=== PATIENT | male | born 1935 | race Caucasian/White ===

== ENCOUNTER 2023-09-13 09:30 | Outpatient (RCR) | payer MEDICARE, SELFPAY | END 2023-10-25 14:08 | disposition home or self-care (01) | PROVIDERS: PCP Family Medicine; Visit Provider Family Medicine | DX: S92.002D Unspecified fracture of left calcaneus, subsequent encounter for fracture with routine healing (principal); M79.672 Pain in left foot; R26.9 Unspecified abnormalities of gait and mobility; Z51.89 Encounter for other specified aftercare | CPT/HCPCS: 97110; 97112; 97116; 97161 ==

== ENCOUNTER 2024-11-20 16:59 | Emergency (ER) | payer MEDICARE, SELFPAY ==
[2024-11-20 17:07] VITALS: BP 163/84; PULSE 57; RESP 18; TEMP 36.7; O2SAT 98; BMI 22.9
--- NOTE | 2024-11-20 18:07 | ED.MALEGU ---
HPI - Male Genitourinary General Chief complaint: Urogenital Problems, Male Stated complaint: urine retention Time Seen by Provider: 11/20/24 18:01 History of Present Illness HPI Narrative: This 89-year-old male comes from clinic because of urinary retention. He reports an allergy to Betadine and latex and so was sent here to have a catheter placed that would not trigger his allergies. Bladder scan on arrival here showed 600 mL of urine. Patient states that there was 900 mL in at the clinic. He has been able to void small amounts rather frequently. He has been having troubles with this urinary retention and has made an appointment with a urologist which is forthcoming for. He does not report any fevers. He did have a urinalysis done at the clinic which was negative for infection. Related Data Home Medications ?Medication ?Instructions ?Recorded ?Confirmed levothyroxine 88 mcg tablet 88 mcg PO QAM 11/20/24 11/20/24 Allergies Allergy/AdvReac Type Severity Reaction Status Date / Time adhesive Allergy Unknown Verified 11/20/24 17:22 ketoconazole Allergy Unknown Verified 11/20/24 17:22 latex Allergy Unknown Verified 11/20/24 17:22 Penicillins Allergy Unknown Verified 11/20/24 17:22 povidone-iodine (From Allergy Unknown Verified 11/20/24 17:22 Betadine) Sulfa (Sulfonamide Allergy Unknown Verified 11/20/24 17:22 Antibiotics) Review of Systems Status of ROS: Reports: 10 or more systems reviewed and unremarkable except as noted in History and below Narrative: Constitutional: No fevers, no weight gain or loss. Eyes: No discharge. No vision changes. HENT: No congestion, no sore throat, no ear pain. Cardiovascular: No chest pain, no palpitations. Respiratory: No shortness of breath, no wheezes, no cough. Gastrointestinal: No abdominal pain, no vomiting, no diarrhea. Genitourinary: Urinary retention. Musculoskeletal: Normal range of motion. Skin: No rashes, no pruritis. Neurological: No dizziness, weakness, sensory change, speech change. Endo/Heme/Allergies: No bruising or bleeding. No polydipsia. Pysch: no suicidality, no anxiety, no insomnia. All other systems reviewed and are negative. Exam Narrative: Exam Narrative: Constitutional: Well-developed, well-nourished, no acute distress. HEENT: Normocephalic, atraumatic. Neck: Normal range of motion. Nontender. Supple. Heart: Regular. No murmurs. Normal rate. Intact distal pulses. Lungs: Clear to auscultation. No chest discomfort. No wheezes, rhonchi, or rales. Abdomen: Normal bowel sounds. No rebound tenderness. Distended lower abdomen. Genitalia: Deferred. Back: No midline tenderness. Normal range of motion. Extremities: Normal range of motion. No injury. Skin: Intact. No rash. Warm. No erythema or pallor. Neurologic: No altered sensation. No weakness. Alert and oriented. Psychiatric: No suicidality. No anxiety or depression. No insomnia. Nursing notes and vitals signs are reviewed. Const: Vital Signs, click to edit/add: Vital Signs - 24 hr 11/20/24 17:07 Temperature 98.1 F Pulse Rate [Right Pulse Oximeter] 57 L Respiratory Rate 18 Blood Pressure [Ri ght Upper Arm] 163/84 H Pulse Oximetry 98 Oxygen Delivery Me thod Room Air Course Vital Signs Vital signs: Initial Vital Signs Temperature 98.1 F 11/20/24 17:07 Temperature Source Temporal Artery Scan 11/20/24 17:07 Pulse Rate 57 L 11/20/24 17:07 Respiratory Rate 18 11/20/24 17:07 Blood Pressure 163/84 H 11/20/24 17:07 Blood Pressure Mean 110 H 11/20/24 17:07 Blood Pressure Position Sitting 11/20/24 17:07 Pulse Oximetry 98 11/20/24 17:07 Oxygen Delivery Method Room Air 11/20/24 17:07 Vital Signs Temperature 98.1 F 11/20/24 17:07 Pulse Rate 57 L 11/20/24 17:07 Respiratory Rate 18 11/20/24 17:07 Blood Pressure 163/84 H 11/20/24 17:07 Pulse Oximetry 98 11/20/24 17:07 Oxygen Delivery Method Room Air 11/20/24 17:07 Temperature 98.1 F 11/20/24 17:07 Pulse Rate 57 L 11/20/24 17:07 Respiratory Rate 18 11/20/24 17:07 Blood Pressure 163/84 H 11/20/24 17:07 Pulse Oximetry 98 11/20/24 17:07 Oxygen Delivery Method Room Air 11/20/24 17:07 Medications Administered Medications: Discontinued Medications Generic Name Dose Route Start Last Admin Trade Name Gareth PRN Reason Stop Dose Admin Lidocaine HCl 6 ml 11/20/24 18:06 11/20/24 18:36 Lidocaine Hcl 2 % Jelly (Top) Sterile TOPICAL 11/20/24 18:07 6 ml ONCE ONE Administration MDM - Male Genitourinary MDM Narrative Medical decision making narrative: This 89-year-old male comes in with urinary retention. A Echevarria catheter was placed and yielded 1100 mL of urine. There is some reddish tinge to the urine likely from the insertion of the catheter. His urinalysis at clinic was negative for infection and hematuria. I instructed him to follow up with Urology which she already has made a connection with. He could return in 3 or 4 days to have the catheter removed if the urology clinic advice is to do such. He was fitted with a leg bag and an overnight bag for going home. Discharge Plan Discharge Clinical Impression: Acute urinary retention Patient Disposition: Home, Self-Care Condition: Improved Additional Instructions: Keep Echevarria catheter in place for at least 3 or 4 days. Follow-up with urology clinic for ongoing management. Return if worsening. Prescriptions: No Action levothyroxine 88 mcg tablet 88 mcg PO QAM Follow Up/Referrals: Peggy Gregg MD [Primary Care Provider] - Stand Alone Forms: HearMe[employer] Info Instructions
[2024-11-20] MEDS: lidocaine HCL 2 % JELLY (TOP) STERILE 6 ML TOPICAL (18:36)
--- OUTSIDE RECORDS SUMMARY | 2024-11-20 19:31 | XMS_ITS | Clinical Summary ---
Author Organization [facility] [facility] Address [address] [place] [id number] Care Team Providers Care Co Founder And Director Name Role Phone Leslie Diaz Joya Unavailable [phone] Peggy Gregg MD Primary Care Provider Allergies Active Allergy Reactions Criticality Noted Date Comments Povidone-Iodine Hives 05/05/2005 Other reaction(s): Swelling huge welt from prep of skin on back Homeopathic Products Ketoconazole Rash 04/13/2011 inflammation Latex Rash 12/03/2006 Patient states he has a severe latex allergy (not anaphylaxis). However, patient had post-op complications at [place] due to severe skin reaction after latex containing bandages were applied. Tree Nut Itching 07/06/2008 Itching inside of mouth Unlisted Allergen (Include Detail In Comments) Rash 07/06/2008 [employer] Medical Coverlet Adhesive dressing Penicillins Itching 12/03/2006 prickly skin Sulfa (Sulfonamide Antibiotics) *Unknown 12/03/2006 Tetanus And Diphtheria Toxoids, Adsorbed, Adult 03/11/2007 had half dollar size red rxn to last tet shot and wonders if it was related to latex allergy Medications multivitamins-mi nerals-lutein (MULTIVITAMIN 50 PLUS) tab tablet Take 1 tablet by mouth once daily. Active polyethylene glycoL (MIRALAX) 17 gram/scoop powder Mix 1 scoop (17 g) in liquid then take by mouth. 0 3 Active levothyroxine (SYNTHROID) 88 mcg tabletIndication s:Hypothyroidism , unspecified type Take 1 Tablet (88 mcg) by mouth before breakfast. 90 Tablet 3 4 Active loratadine (CLARITIN) 10 mg tablet Take 10 mg by mouth once daily. Active triamcinolone, 55 mcg each actuation, nasal (NASACORT AQ) 55 mcg nasal spray Inhale 2 Sprays in both nostrils once daily. Active triamcinolone 0.1 % creamIndications :Dermatitis Apply topically to affected area(s) two times daily. 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 Other and unspecified hyperlipidemia 03/07/2007 Resolved Problems Problem Noted Date Diagnosed Date Resolved Date Chronic kidney disease, stage III (moderate) 6 06/25/2024 Major depressive disorder, r ecurrent episode, mild 08/30/2007 11/01/2020 Encounters Date Type Department Care Team Description 11/20/2024 2:25 PM CDT Office Visit [facility] [address] [place] [address] Peggy Gregg MD Derm Problem (Left ankle; rash as well as right foot and left foot.); Urinary Problem (Frequency in urination; every half hour to an hour to go); Weight (Has gained weight and needs to loose about 20 lbs.) 11/20/2024 Travel 08/25/2024 Telephone [facility] [address] [place] [address] Leonie Redding AuD Hearing Aid from Last 3 Months Immunizations Immunization Administration Dates Next Due COVID-19 VACCINE SPIKEVAX (M ODERNA 50MCG/0.5ML) 12YO+ PFS 06/03/2024,11/22/2023,06/12/2023 COVID-19 vaccine (Finalta NTech 30mcg/0.3mL) 12YO+ BIVALENT PF, MDV 05/04/2022 COVID-19 vaccine (Finalta NTech 30mcg/0.3mL) 12YO+ SYEDA-SUCROSE PF, MDV 11/23/2021 COVID-19 vaccine (Finalta NTech 30mcg/0.3mL) PF, MDV 05/14/2021,10/12/2020,09/21/2020 Influenza A (H1N1), Inactivated 08/24/2009 Influenza Virus, Unspecified 04/25/2019,05/27/20 14,06/05/2011 Influenza, High-dose Inactivated 05/27/2014 Influenza, High-dose Quadriv alent Inactivated 06/02/2022,05/14/2021,06/04/2020 Influenza, IIV3 (Age >=3 years) 06/05/20 12,06/05/2011,05/05/2010,2008,10/11/2005,05/23/2004,06/20/2003 Influenza, IIV4 06/26/2018,06/01/2017 Influenza, Inactivated AIIV4 (Age 65+ Years) Preserv Free 06/12/2023 Influenza, Inactivated IIV3 (Age 65+ Years) Preserv Free 06/03/2024 Pneumococcal Poly,23-Valent (Pneumovax) 10/11/2005 Pneumococcal conj 13-Valent (Prevnar 13) 01/03/2018 Td (Age >=7 Years) 09/21/1995 Td, Preservative Free (age > = 7 Years) 03/07/2007 Tdap 10/07/2012 Tdap, Unspecified 09/21/1995 Zoster (Shingrix-RZV, recombinant) 03/20/2018, Zoster (Zostavax-ZVL, live) 03/20/2013 Family History Medical History Relation Name Comments Other Brother 2 diabetes, heart , bipolar Other Father age 89, ar teriosclerosi Arthritis Mother rheumatoid Other Mother age 96, [place] , breast ca, arthritis Anesthesia Malignant Hyperthermia No Family History Blood Disease No Family History Relation Name Status Comments Brother 1 Brother 2 Father Mother Social History Tobacco Use Types Packs/Day Years Used Date Smoking Tobacco: Former Cigarettes 0 01/04/1960 - 08/13/1962 Pipe Cigars Smokeless Tobacco: Never Tobacco Cessation:Counseling Given: Yes Comments:patient states not a regular smoker Alcohol Use Standard Drinks/Week Comments Yes 0 (1 standard drink = 0.6 oz pur e alcohol) occasional PHQ-2 Answer Date Recorded PHQ-2 TOTAL SCORE 0 06/25/2024 Social Connections Answer Date Recorded Do you often feel lonely or isolated from those around you? 0 06/25/2024 Financial Resource Strain Answer Date R ecorded Difficulty of Paying Living Expenses 3 06/25/2024 Difficulty of Paying Living Expenses Not on file 06/25/2024 Food Insecurity Answer Date Recorded Do you worry your food will run out before you are able to buy more? 1 06/25/2024 Transportation Needs Answer Date Record ed Does lack of transportation keep you from medica l appointments? 1 06/25/2024 Does lack of transportation keep you from work, meetings or getting things that you need? 1 06/25/2024 Housing Stability Answer Date Recorded What is your housing situation today? 1 06/25/2024 Utilities Answer Date Recorded Do you have trouble paying f or utilities (for example, heat, electricity, water, phone)? 1 06/25/2024 Sex and Gender Information Value Date Recorded Sex Assigned at Not on file Legal Sex Male 6:07 AM CLINICAL TRIAL DATA MANAGER Gender Identity Not on file Sexual Orientation Not on file Occupation Industry Job Start Date Job End Date retired Not on file Not on file Not on file Obstetrics History Last Filed Vital Signs Vital Sign Reading Time Taken Comments Blood Pressure 135/81 11/20/2024 2:33 PM CDT Pulse 70 11/20/2024 2:33 PM CDT Temperature 36.6 C (97.9 F) 05/16/2023 11:05 AM CDT Respiratory Rate 12 02/19/2020 8:38 AM CDT Oxygen Saturation 97% 11/20/2024 2:33 PM CDT Inhaled Oxygen Concentration - - Weight 75.2 kg (165 lb 12.8 oz) 024 10:28 AM CLINICAL TRIAL DATA MANAGER Height 177.8 cm (5' 10) 07/16/2024 10: 28 AM CLINICAL TRIAL DATA MANAGER Body Mass Index 23.79 07/16/2024 10:28 AM CLINICAL TRIAL DATA MANAGER Plan of Treatment Health Maintenance Due Date Last Done Comments RSV vaccine for adults or (1 - 1-dose 75+ series) 2010 Tetanus booster 10/07/2022 10/07/2012, 02/11, 09/21/1995, Additional history exists COVID-19 vaccine series ( season) 2024 06/03/2024, 11/22/2023, 06/12/2023, Additional history exists Depression screening for age 12+ 06/25/2025 06/25/2024, 05/23/2023, 02/02/2022, Additional history exists Medicare Wellness for age 65+ 06/26/2025, 02/02/2022, 11/01/2020, Additional history exists BMI (ht and wt on same day) for age 18+ 07/16/2025 07/16/2024, 06/25/2024, 02/02/2022, Additional history exists Tdap Completed 10/07/2012, 09/21/1995 Pneumococcal series for age 50+ Completed 8, 10/11/2005 Zoster (shingles) series for age 50+ Completed 03/20/2018, 12/31/2017, 03/20/2013 Influenza Vaccine Completed 06/03/2024, , 04/25/2019, Additional history exists Medical Devices Implanted Type Area Maintainability Engineer Device Identifier Shelf Expiration Date Model / Serial / Lot Stent Uret [id number] Contour - [id number] Implanted:Qty: 1 on 06/29/2016 by Colin Zhao MD at [facility] Right: [facility]reter [facility] [id number]# / / [id number] Stent Uret [id number] Contour - [id number] Implanted:Qty: 1 on 09/12/2017 by Tripp Howard MD at [facility] Right: [facility]reter [facility] 06/26/2020 [id number]# / / [id number] Procedures Procedure Name Priority Date/Time Associated Diagnosis Comments URINALYSIS MACROSCOPIC - [facility] ONLY POC DIP (QUEST) Routine 11/20/2024 3:37 PM CDT Urine frequency from Last 3 Months Results * (ABNORMAL) POCT Urinalysis Dipstick Only [[id number]] (11/20/2024 3:37 PM CDT) PH 6.0 5.0 - 8.0 [facility] SPECIFIC GRAVITY 1.015 1.001 - 1.035 [facility] GLUCOSE NEGATIVE NEGATIVE [facility] BILIRUBIN NEGATIVE NEGATIVE [facility] KETONES NEGATIVE NEGATIVE [facility] OCCULT BLOOD TRACE(A) NEGATIVE [facility] PROTEIN NEGATIVE NEGATIVE [facility] NITRITE NEGATIVE NEGATIVE [facility] LEUKOCYTE ESTERASE NEGATIVE NEGATIVE [facility] Urine URINE SPECIMEN / Unknown 11/20/2024 3:37 PM CDT 11/20/2024 3:38 PM CDT Peggy Gregg MD URINE Final R esult [facility] [address] [place] [address], [facility] [address] [place] [address] from Last 3 Months Insurance MEDICARE PB ONLY MEDICARE PART B HB ONLY MEDICARE PART A HB ONLY Advance Directives Documents on File Type Date Recorded Patient Rubber Down Expl anation Healthcare Directive 09/23/2013 8:21 AM AM Sahra BURNS, 09/04/2013 * Full Code (Latest Code Status on File) Date Activated Date Inactivated Comments 09/13/2017 11:03 AM 09/13/2017 2:49 PM Question Answer Comments Code Status Discussion: Discussed * Full Code Date Activated Date Inactivated Comments 09/12/2017 7:37 AM 09/12/2017 12:16 PM * Full Code Date Activated Date Inactivated Comments 06/29/2016 3:08 PM 06/30/2016 2:32 AM Care Teams Co Founder And Director Relationship Specialty Start Date End Date Peggy Gregg MD [address] [place] [address] PCP - General Family Practice 11/01/16 Leslie Diaz AuD [address] [place] [address] Audiology 10/05/15
--- OUTSIDE RECORDS SUMMARY | 2024-11-20 19:31 | XMS_ITS | Clinical Summary ---
Author Organization [facility] Address [address] [address] Phone Care Team Providers Care Rehabilitation Consultant Name Role Phone Peggy Gregg MD Primary Care Provider Allergies Active Allergy Reactions Criticality Noted Date Comments Povidone Iodine Hives,Swelling High 05/05/2005 huge welt from prep of skin on back Environmental Rhinitis Low 05/05/2005 hayfever like systems Food Rhinitis Low 05/05/2005 throat sore from many fruits, and vegetables FRESH allergic also to most nuts Most okay if cooked Ketoconazole Other Low 01/16/2013 [facility] Record Scanned 08/24/14 Latex RASH Medium 12/19/2005 Latex, Also some metals, and adhesives, bandages Penicillin G Potassium RASH Medium 05/05/2005 Povidone Iodine Hives,Swelling High 05/05/2005 Other reaction(s): Swelling huge welt from prep of skin on back Sulfa Drugs Unknown Medium 05/05/2005 ? allergy would rather not use Medications Psyllium (METAMUCIL OR) Take by mouth. Active levothyroxine (Synthroid) 88 MCG tablet Take 88 mcg by mouth one time a day. 01/06/2022 Active Active Problems No known active problems Immunizations Name Administration Dates Next Due COVID-19 mRNA Vaccine (Pfize r-Purple 12+ Yrs) 10/12/2020,09/21/2020 Influenza 05/27/2014 Influenza H1N1 Unspecified 08/24/2009 Influenza High Dose Quadrivalent 06/04/2020 Influenza Trivalent Adjuvant ed Preservative Free (Fluad) 04/25/2019 Influenza Trivalent Preservative Free 06/05/2011 Influenza Trivalent Preserva tive Free (High Dose) 06/26/2018,06/01/2017,05/27/2014 Influenza Trivalent With Preservative 06/05/2012 ,05/23/2004,06/20/2003 Pneumococcal Conjugate, (Prevnar)13-valent 01/03 Pneumovax 23 10/11/2005 TD >7Yrs Preservative Free 03/07/2007 TD >7yrs With Preservative 09/21/1995 Tdap (7 years and older) 10/07/2012,09/21/1995 Zoster Shingrix 2 Dose (Shingles) 03/20/2018, Zoster Zostavax (Shingles) 03/20/2013 Surgical History Surgery Date Site/Laterality Comments LAP,INGUINAL HERNIA REPR,INITIAL 04/10/2013 Right OPEN RX METATARSAL FRACTURE 5th Metatarsal ORIF TONSILLECTOMY AND ADENOIDECTOMY CIRCUMCISION VASECTOMY TURP 2010 DESTRUCT PREMALG LESION 08/18/2014 COLONOSCOPY 12/10/2007 Medical History Medical History Date Comments Closed fracture of alveolar border of body of mandible (HCC) 03/23/2003 Right inguinal hernia 03/19/2013 Hypothyroidism 03/20/2013 Allergic rhinitis 03/20/2013 Psoriasis 03/20/2013 Prostate hyperplasia without urinary obstruction 03/20/2013 Impotence of organic origin 03/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 Hyperlipidemia 03/20/2013 Major depression, recurrent (HCC) 03/20/2013 Bony exostosis 12/31/2013 Great toe Toe deformity 12/31/2013 Transverse plane deformity, second digit, left foot Seborrheic dermatitis 08/18/2014 Actinic keratoses 08/18/2014 Hematuria 08/14/2014 Constipation 08/14/2014 Family History Medical History Relation Comments Bipolar Brother 1 Diabetes Brother 2 Cardiovascular Disease Brother 3 Relation Status Comments Brother 1 Brother 2 Brother 3 Father (Age 89) Arterioscleros is Mother (Age 96) [place], breast can cer, arthritis Social History Tobacco Use Types Packs/Day Years Used Date Smoking Tobacco: Never Smokeless Tobacco: Never Tobacco Cessation:Counseling Given: Not Answered Alcohol Use Standard Drinks/Week Comments Not Asked 0 (1 standard drink = 0.6 oz pur e alcohol) PHQ-2 Answer Date Recorded PHQ-2 Total 0 03/21/2023 Sex and Gender Information Value Date Recorded Sex Assigned at Not on file Legal Sex 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:59 PM SENIOR TAX ANALYST Gender Identity Not on file Sexual Orientation Not on file Obstetrics History Last Filed Vital Signs Vital Sign Reading Time Taken Comments Blood Pressure 132/70 05/09/2023 2:55 PM CDT Pulse 60 05/09/2023 2:55 PM CDT Temperature 36.9 C (98.4 F) 03/21/2023 1:06 PM CDT Respiratory Rate - - Oxygen Saturation 98% 05/09/2023 2:55 PM CDT Inhaled Oxygen Concentration - - Weight 73 kg (160 lb 15 oz) 03/28/2023 11:14 AM CDT Height - - Body Mass Index - - Plan of Treatment Health Maintenance Due Date Last Done Comments MEDICARE AWV 1935 RSV Vaccination (60+ yrs) (Abrysvo/Arexvy) (1 - 1-dose 75+ series) 2010 TETANUS (Standing Order) 10/07/2022 013, 03/07/2007, 09/21/1995, Additional history exists COVID-19 Vaccine ( season) 2024 10/12/2020, 09/21/2020 Influenza Vaccine Seasonal (Standing Order) (#1) 2024 06/04/2020, 04/25/2019, 06/26/2018, Additional history exists PERTUSSIS (Standing Order) Completed 10/07/2012, Pneumococcal Vaccine: 50+ yrs (Standing Order) Completed 01/03/2018, 10/11/2005 Shingrix (Zoster recombinant) vaccine (Standing Order) Completed 03/20/2018, 12/31/2017 HPV Vaccine (Standing Order) Aged Out No longer eligible based on patient's age to complete this topic Hepatitis B Vaccine (Standing Order) Aged Out No longer eligible based on patient's age to complete this topic Insurance MEDICARE PART A & B Advance Directives For more information, please contact: [phone] * No Code Status (Latest Code Status on File) Date Activated Date Inactivated Comments 01/02/2005 9:16 AM 01/02/2005 9:16 AM Care Teams Rehabilitation Consultant Relationship Specialty Start Date End Date Peggy Gregg MD PCP - General Family Medicine 01/11/17
== END 2024-11-20 19:33 | disposition home or self-care (01) ==
LOC: ED 19:29
PROVIDERS: Emergency Provider Emergency Medicine Emergency Medical Services; PCP Family Medicine
DX: R33.9 Retention of urine, unspecified (principal)
CPT/HCPCS: 51702; 99283; 99284

== ENCOUNTER 2024-11-28 20:41 | Emergency (ER) | payer MEDICARE, SELFPAY ==
--- OUTSIDE RECORDS SUMMARY | 2024-11-28 20:44 | XMS_ITS | Clinical Summary ---
Author Organization [facility] [employer] [facility] Address [address] [address] Phone Care Team Providers Care Senior Brand Manager Name Role Phone Peggy Gregg MD Primary Care Provider Allergies Active Allergy Reactions Criticality Noted Date Comments Povidone Iodine Hives,Swelling High 05/05/2005 huge welt from prep of skin on back Environmental Rhinitis Low 05/05/2005 hayfever like systems Food Rhinitis Low 05/05/2005 throat sore from many fruits, and vegetables FRESH allergic also to most nuts Most okay if cooked Ketoconazole Other Low 01/16/2013 [facility] Record Scanned 08/24/14 Latex RASH Medium [...] (Age 89) Arterioscleros is Mother (Age 96) [place], breast can cer, arthritis Social History Tobacco [...] on file Legal Sex 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
--- OUTSIDE RECORDS SUMMARY | 2024-11-28 20:44 | XMS_ITS | Clinical Summary ---
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 However, patient had post-op complications at [place] due to severe skin reaction after latex [...] Encounters Date Type Department Care Team Description 11/28/2024 2:40 PM CDT Nurse/Clinic Staff Only [facility] [address] [place] [address] Removal (Catheter removal ) 11/28/2024 Telephone [facility] [address] [facility] [place] [address] Peggy Gregg MD Appointment 11/28/2024 Travel 11/24/2024 Telephone [facility] [address] [facility] [place] [address] Peggy Gregg MD Results 11/21/2024 Telephone [facility] [address] [facility] [place] [address] Peggy Gregg MD Results 11/20/2024 2:25 PM CDT Office Visit [facility] [address] [place], [place] [id number] Peggy Gregg MD Derm Problem (Left ankle; rash as well as right foot and left foot.); Urinary Problem (Frequency in urination; every half hour to an hour to go); Weight (Has gained weight and needs to loose about 20 lbs.) 11/20/2024 Travel from Last 3 Months Immunizations Immunization Administration Dates Next Due COVID-19 VACCINE SPIKEVAX (M ODERNA 50MCG/0.5ML) 12YO+ PFS 06/03/2024,11/22/2023,06/12/2023 COVID-19 vaccine (Genera EnergyBio NTech 30mcg/0.3mL) 12YO+ BIVALENT PF, MDV 05/04/2022 COVID-19 vaccine (Genera EnergyBio NTech 30mcg/0.3mL) 12YO+ SYEDA-SUCROSE PF, MDV 11/23/2021 COVID-19 vaccine (SQLstream NTech 30mcg/0.3mL) PF, MDV 05/14/2021,10/12/2020,09/21/2020 Influenza A [...] Arthritis Mother rheumatoid Other Mother age 96, [place] , breast ca, arthritis Anesthesia Malignant Hyperthermia [...] on file Legal 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 Gender Identity Not on file Sexual [...] (165 lb 12.8 oz) 024 10:28 AM LPN CARE MANAGER Height 177.8 cm (5' 10) 07/16/2024 10: 28 AM LPN CARE MANAGER Body Mass Index 23.79 07/16/2024 10:28 AM LPN CARE MANAGER Plan of Treatment Upcoming Encounters Date Type Department Care Team (Late st Contact Info) Description 12/08/2024 8:15 AM CDT Orders Only [facility] [address] [place] [address] Lab, [facility] Maintenance Due Date Last Done Comments [...] history exists Medical Devices Implanted Type Area Optical Manufacturing Technician Device Identifier Shelf Expiration Date Model / Serial / Lot Stent Uret [id number] Contour - [id number] Implanted:Qty: 1 on 06/29/2016 by Colin Zhoa MD at [facility] Right: Ureter [facility] [place] [facility] [id number]# / / [id number] Stent Uret [id number] Contour - [id number] Implanted:Qty: 1 on 09/12/2017 by Tripp Howard MD at [facility] Right: Ureter [facility] [place] [facility] 06/26/2020 [id number]# / / [id number] Procedures Procedure Name Priority Date/Time Associated Diagnosis Comments CREATININE Routine 11/20/2024 4:40 PM CDT BPH with urinary obstruction URINALYSIS MICROSCOPIC Routine 11/20/2024 3:37 PM CDT Urine frequency URINE CULTURE Routine 11/20/2024 3:37 PM CDT Urine frequency URINALYSIS [facility] ONLY POC DIP ([facility]) Routine 11/20/2024 3:37 PM CDT Urine frequency from Last 3 Months Results * (ABNORMAL) CREATININE (11/20/2024 4:40 PM CDT) CREATININE 1.29(H) 0.70 - 1.22 mg/dL [facility] EGFR 53(L) > OR = 60 mL/min/1.73 m2 [facility] Garcia Blood BLOOD SPECIMEN / Unknown 11/20/2024 4:40 PM CDT 11/20/2024 4:40 PM CDT us Peggy Gregg MD CHEMISTRY Final R esult [facility] [address] [place] [address], [facility] [address] [place] [address] * (ABNORMAL) POCT Urinalysis Dipstick Only [[id number]] (11/20/2024 3:37 PM CDT) Pathologist [facility] PH 6.0 5.0 - 8.0 [facility] SPECIFIC GRAVITY 1.015 1.001 - 1.035 [facility] GLUCOSE NEGATIVE NEGATIVE [facility] BILIRUBIN NEGATIVE NEGATIVE [facility] KETONES NEGATIVE NEGATIVE [facility] OCCULT BLOOD TRACE(A) NEGATIVE [facility] PROTEIN NEGATIVE NEGATIVE [facility] NITRITE NEGATIVE NEGATIVE [facility] LEUKOCYTE ESTERASE NEGATIVE NEGATIVE [facility] Urine URINE SPECIMEN / Unknown 11/20/2024 3:37 PM CDT 11/20/2024 3:38 PM CDT Peggy Gregg MD URINE Final R esult [facility] [address] [place] [address], [facility] [address] [place] [address] * URINALYSIS MICROSCOPIC [30074.1] - routine (11/20/2024 3:37 PM CDT) Pathologist [facility] RBC 0-2 0-2, None Seen /HPF 11/20/2024 11:10 PM CDT [facility] WBC 0-2 0-2, 3-5, None Seen /HPF 11/20/2024 11:10 PM CDT [facility] BACTERIA None Seen None Seen, Rare, Few Bacteria/ HPF 11/20/2024 11:10 PM CDT [facility] EPITHELIAL CELLS None Seen None Seen, Few Epi/HPF 11/20/2024 11:10 PM CDT [facility] HYALINE CASTS 0-2 0-2, 3-5 /LPF 11/20/2024 11:10 PM CDT [facility] Urine URINE SPECIMEN / Unknown Non-Blood / Unknown 11/20/2024 3:37 PM CDT 11/20/2024 3:37 PM CDT Peggy Gregg MD URINE Final R esult Performing Organization Address City/[facility]/ZIP Co de Phone Number [facility] [address] [address], [place] * URINE CULTURE [40517.2] (11/20/2024 3:37 PM CDT) CULTURE <10,000 CFU/mL multiple organisms 11/22/2024 3:15 PM CDT [facility] Urine URINE SPECIMEN / Unknown Non-Blood / Unknown 11/20/2024 3:37 PM CDT 11/20/2024 3:37 PM CDT Peggy Gregg MD MICROBIOLOGY Final R esult Performing Organization Address City/[facility] Co de Phone Number [facility] [address] [address], from Last 3 Months Insurance MEDICARE PB ONLY MEDICARE PART B HB ONLY MEDICARE PART A HB ONLY Advance Directives Documents on File Type Date Recorded Patient Cathead Worker Expl anation Healthcare Directive 09/23/2013 8:21 AM AM Sahra BURNS 09/04/2013 * Full Code (Latest Code Status on File) Date Activated Date Inactivated Comments 09/13/2017 11:03 AM 09/13/2017 2:49 PM Question Answer Comments Code Status Discussion: Discussed * Full Code Date Activated Date Inactivated Comments 09/12/2017 7:37 AM 09/12/2017 12:16 PM * Full Code Date Activated Date Inactivated Comments 06/29/2016 3:08 PM 06/30/2016 2:32 AM Care Teams Blemish Remover Relationship Specialty Start Date End Date Peggy Gregg MD [address] [place] [address] PCP - General Family Practice 11/01/16 Leslie Diaz AuD [address] [place] [address] [address] Audiology 10/05/15
[2024-11-28 21:01] VITALS: BP 166/96; PULSE 66; RESP 18; TEMP 36.7; O2SAT 97; BMI 22.6
[2024-11-28 21:40] LABS: Appearance Urine Clear (Clear); Bilirubin Urine Negative (Negative); Blood Urine 3+ (Negative); Color Urine Yellow (Yellow); Glucose Urine Negative (Negative); Ketones Urine Negative (Negative); Leukocyte Esterase Urine Negative (Negative); Nitrite Urine Negative (Negative); Protein Urine 3+ (Negative); Specific Gravity Urine 1.025 (1.000-1.030); Urobilinogen Urine 0.2 (0.2-1.0); pH Urine 6.5 (5.0-8.5)
[2024-11-28 21:50] LABS: WBC Urine 0-2 (0-5)
[2024-11-28] MEDS: lidocaine HCL 2 % JELLY (TOP) STERILE 6 ML UR (21:56)
--- NOTE | 2024-11-28 22:37 | ED_ITS ---
HPI - General Adult General Date Seen: 11/28/24 Chief complaint: Urogenital Problems, Male Stated complaint: urinary problems Time Seen by Provider: 11/28/24 21:05 History of Present Illness HPI narrative: Very pleasant 89-year-old gentleman presenting to the ER today with his with concern for inability to urinate. 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 Kuhn). He was seen here in the ER about 10 days ago on the with urinary retention and had placement of a Echevarria catheter. He had that catheter in place for over a week and then had follow-up in his primary care clinic today. He had the catheter removed around noon today at the [facility] clinic but has not been able to urinate since then. He he is noting increasing suprapubic pressure but not really abdominal pain. No flank pain. No fever. No nausea or vomiting. Since he is unable to void my than a drop, he is concerned that he has recurrent retention so came back to the ER. He would like to have another catheter put in. His notes that his clinic referred him for Urology and apparently the 1st available appointment is in January. Related Data Home Medications ?Medication ?Instructions ?Recorded ?Confirmed levothyroxine 88 mcg tablet 88 mcg PO QAM 11/20/24 11/28/24 Allergies Allergy/AdvReac Type Severity Reaction Status Date / Time adhesive Allergy Unknown Verified 11/28/24 21:03 ketoconazole Allergy Unknown Verified 11/28/24 21:03 latex Allergy Unknown Verified 11/28/24 21:03 Penicillins Allergy Unknown Verified 11/28/24 21:03 povidone-iodine (From Allergy Unknown Verified 11/28/24 21:03 Betadine) Sulfa (Sulfonamide Allergy Unknown Verified 11/28/24 21:03 Antibiotics) Exam Narrative: Exam Narrative: Constitutional: Appears well-developed and well-nourished. Alert. Conversant. Non toxic. HENT: Head: Atraumatic. Nose: Nose normal. Mouth/Throat: Oral mucosa is clear and moist. no trismus. Eyes: Conjunctivae normal. EOM normal. Pupils equal, round, and reactive to light. No scleral icterus. Neck: Normal range of motion. Neck supple. No tracheal deviation present. Cardiovascular: Normal rate, regular rhythm. No gallop. No friction rub. No murmur heard. Pulmonary/Chest: Effort normal. No stridor. No respiratory distress. No wheezes. No rales. No rhonchi Abdominal: Soft. Bowel sounds normal. No distension. No mass. No tenderness. No rebound. No guarding. No CVA tenderness : Normal external penis. Small amount of dry blood on the skin but no active bleeding. Meatus normal. Penile shaft normal. Testicles and scrotum normal. Musculoskeletal: RUE: Normal range of motion. No tenderness. No deformity LUE: Normal range of motion. No tenderness. No deformity RLE: Normal range of motion. No edema. No tenderness. No deformity LLE: Normal range of motion. No edema. No tenderness. No deformity Lymph: No inguinal adenopathy. Neurological: Alert and oriented to person, place, and time. Normal strength. CN II-VII intact. No sensory deficit. GCS eye subscore is 4. GCS verbal subscore is 5. GCS motor subscore is 6. Normal coordination Skin: Skin is warm and dry. No rash noted. No pallor. Normal capillary refill. Psychiatric: Normal mood. Normal affect. Const: Vital Signs, click to edit/add: Vital Signs - 24 hr 11/28/24 21:01 11/28/24 22:58 Temperature 98.1 F Pulse Rate 67 Pulse Rate [Right Pulse Oximeter] 66 Respiratory Rate 18 16 Blood Pressure 161/95 H Blood Pressure [Ri ght Upper Arm] 166/96 H Pulse Oximetry 97 96 Oxygen Delivery Me thod Room Air Room Air Course Vital Signs Vital signs: Initial Vital Signs Temperature 98.1 F 11/28/24 21:01 Temperature Source Temporal Artery Scan 11/28/24 21:01 Pulse Rate 66 11/28/24 21:01 Respiratory Rate 18 11/28/24 21:01 Blood Pressure 166/96 H 11/28/24 21:01 Blood Pressure Mean 119 H 11/28/24 21:01 Blood Pressure Position Supine 11/28/24 21:01 Pulse Oximetry 97 11/28/24 21:01 Oxygen Delivery Method Room Air 11/28/24 21:01 Vital Signs Temperature 98.1 F 11/28/24 21:01 Pulse Rate 66 11/28/24 21:01 Respiratory Rate 18 11/28/24 21:01 Blood Pressure 166/96 H 04/18/25 21:01 Pulse Oximetry 97 11/28/24 21:01 Oxygen Delivery Method Room Air 11/28/24 21:01 Temperature 98.1 F 11/28/24 21:01 Pulse Rate 67 11/28/24 22:58 Respiratory Rate 16 11/28/24 22:58 Blood Pressure 161/95 H 11/28/24 22:58 Pulse Oximetry 96 11/28/24 22:58 Oxygen Delivery Method Room Air 11/28/24 22:58 Medications Administered Medications: Discontinued Medications Generic Name Dose Route Start Last Admin Trade Name Freq PRN Reason Stop Dose Admin Lidocaine HCl 6 ml 11/28/24 21:48 11/28/24 21:56 Lidocaine Hcl 2 % Jelly (Top) Sterile UR 6 ml ONCE PRN Administration Medical Decision Making MDM Narrative Medical decision making narrative: Very pleasant 89-year-old gentleman presenting to the ER today with acute urinary retention. He actually been seen here in the ER recently with urinary retention and had a Echevarria catheter placed. He had outpatient follow-up in his PCP clinic today with the catheter removed but has not been able to urinate since his catheter was removed. Bedside ultrasound by nursing did reveal a retained bladder volume of about 500 mL. He was not able to urinate. Nursing was able to pass a Echevarria catheter and subsequently the catheter drained just in excess of 500 mL of dark yellow urine. There was no blood or clots causing any obstruction. Urinalysis is negative for infection. Cause for the urinary retention is unclear. He has never been on the medications for BPH. However, he does recall that he apparently saw a urologist (Dr. Kuhn) years ago and apparently had a stent placed in his urethra because of his stricture. 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 Plan of care will be to discharge home. We did carefully review Echevarria catheter care instructions and step that he can take to avoid developing catheter related urinary tract infections. Advised close outpatient follow-up with Urology. The patient's reports that his PCP P clinic already tried to get him referred to Urology and the 1st available appointment was not until January. I counseled them to try to call [place] [facility] themselves to see if they can arrange a more rapid outpatient ER follow-up visit. They will do so. Discussed the need for follow-up with Urology or PCP for Echevarria catheter check and trial of voiding. Ideally would need urology evaluation since he may need cystoscopy and stricture dilation. Precautions for return to the ER reviewed. Lab Data Labs: Lab Results 11/28/24 Range/Units 21:25 Urine Color Yellow (Yellow) Urine Appearance Clear (Clear) Urine pH 6.5 (5.0-8.5) Ur Specific [place] 1.025 (1.000-1.030) Urine Protein 3+ A (Negative) Urine Glucose (UA) Negative (Negative) Urine Ketones Negative (Negative) Urine Blood 3+ A (Negative) Urine Nitrite Negative (Negative) Urine Bilirubin Negative (Negative) Urine Urobilinogen 0.2 (0.2-1.0) Ur Leukocyte Esterase Negative (Negative) Urine RBC 2-5 A (0-2) Urine WBC 0-2 (0-5) Ur Squamous Epith Cells None (None-Few) Urine Bacteria None (None) Discharge Plan Discharge Clinical Impression: Acute urinary retention Patient Disposition: Home, Self-Care Condition: Stable Instructions: Urinary Retention in Men (ED), Echevarria Catheter Placement and Care (ED) Additional Instructions: [facility]. To schedule an appointment with [place] [facility] call [phone]. Please tell the urologist clinic schedulers that you need an ER follow-up appointment with Dr. Kuhn or with 1 of his partners for within 1-2 weeks for for catheter removal. Tell them that you have had a previous urethral stricture and that you may need a cystoscopy and treatment of your stricture. In the meantime, monitor carefully. If you have worsening symptoms or any concerns, please come back to the ER right away. Prescriptions: No Action levothyroxine 88 mcg tablet 88 mcg PO QAM Follow Up/Referrals: Peggy Gregg MD [Primary Care Provider] - Stand Alone Forms: [employer] Info Instructions
--- OUTSIDE RECORDS SUMMARY | 2024-11-28 22:49 | XMS_ITS | Clinical Summary ---
Author Organization [facility] [employer] [facility] Address [address] [address] Phone Care Team Providers Care Bid Writer Name Role Phone Peggy Gregg MD Primary Care Provider Allergies Active Allergy Reactions Criticality Noted Date Comments Povidone Iodine Hives,Swelling High 05/05/2005 huge welt from prep of skin on back Environmental Rhinitis Low 05/05/2005 hayfever like systems Food Rhinitis Low 05/05/2005 throat sore from many fruits, and vegetables FRESH allergic also to most nuts Most okay if cooked Ketoconazole Other Low 01/16/2013 [facility] Record Scanned 08/24/14 Latex RASH Medium [...] (Age 89) Arterioscleros is Mother (Age 96) [place], breast can cer, arthritis Social History Tobacco [...] on file 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
--- OUTSIDE RECORDS SUMMARY | 2024-11-28 22:49 | XMS_ITS | Clinical Summary ---
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 However, patient had post-op complications at [place] due to severe skin reaction after latex [...] 11/28/2024 2:40 PM CDT Nurse/Clinic Staff Only [facility] [address] [place] [address] Removal (Catheter removal ) 11/28/2024 Telephone [facility] [address] [place] [address] Peggy Gregg MD Appointment 11/28/2024 Travel 11/24/2024 Telephone [facility] [address] [place] [address] Peggy Gregg MD Results 11/21/2024 Telephone [facility] [address] [place] [address] Peggy Gregg MD Results 11/20/2024 2:25 PM CDT Office Visit [facility] [address] [place], [place] [id number] Peggy Gregg MD Derm Problem (Left ankle; rash as well as right foot and left foot.); Urinary Problem (Frequency in urination; every half hour to an hour to go); Weight (Has gained weight and needs to loose about 20 lbs.) 11/20/2024 Travel from Last 3 Months Immunizations Immunization Administration Dates Next Due COVID-19 VACCINE SPIKEVAX (M ODERNA 50MCG/0.5ML) 12YO+ PFS 06/03/2024,11/22/2023,06/12/2023 COVID-19 vaccine (GolgiBio NTech 30mcg/0.3mL) 12YO+ BIVALENT PF, MDV 05/04/2022 COVID-19 vaccine (GolgiBio NTech 30mcg/0.3mL) 12YO+ SYEDA-SUCROSE PF, MDV 11/23/2021 COVID-19 vaccine (MIOTtech NTech 30mcg/0.3mL) PF, MDV 05/14/2021,10/12/2020,09/21/2020 Influenza A [...] Arthritis Mother rheumatoid Other Mother age 96, [place] , breast ca, arthritis Anesthesia Malignant Hyperthermia [...] on file 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 Gender Identity Not on file Sexual Orientation [...] (165 lb 12.8 oz) 024 10:28 AM SAFETY DEPOSIT CLERK Height 177.8 cm (5' 10) 07/16/2024 10: 28 AM SAFETY DEPOSIT CLERK Body Mass Index 23.79 07/16/2024 10:28 AM SAFETY DEPOSIT CLERK Plan of Treatment Upcoming Encounters Date Type Department Care Team (Late st Contact Info) Description 12/08/2024 8:15 AM CDT Orders Only [facility] [address] [place] [address] Lab, [place] [facility] Maintenance Due Date Last [...] history exists Medical Devices Implanted Type Area Insurance Billing Clerk Device Identifier Shelf Expiration Date Model / Serial / Lot Stent Uret [id number] Contour - [id number] Implanted:Qty: 1 on 06/29/2016 by Colin Zhao MD at [facility] Right: [facility] 180-222# / / [id number] Stent Uret [id number] Contour - [id number] Implanted:Qty: 1 on 09/12/2017 by Tripp Howard MD at [facility] Right: [employer] [facility] 06/26/2020 [id number]# / / [id number] Procedures Procedure Name Priority Date/Time Associated Diagnosis Comments CREATININE Routine 11/20/2024 4:40 PM CDT BPH with urinary obstruction URINALYSIS MICROSCOPIC Routine 11/20/2024 3:37 PM CDT Urine frequency URINE CULTURE Routine 11/20/2024 3:37 PM CDT Urine frequency URINALYSIS [facility] ONLY POC DIP ([facility]) Routine 11/20/2024 [...] Peggy Gregg MD CHEMISTRY Final R esult [facility] [address] [place] [address], [facility] [address] [place] [address] * (ABNORMAL) POCT Urinalysis Dipstick Only [[id number]] (11/20/2024 3:37 PM CDT) Pathologist [facility] PH 6.0 5.0 - 8.0 [facility] SPECIFIC GRAVITY 1.015 1.001 - 1.035 [facility] GLUCOSE NEGATIVE NEGATIVE [facility] BILIRUBIN NEGATIVE NEGATIVE [facility] KETONES NEGATIVE NEGATIVE [facility] OCCULT BLOOD TRACE(A) NEGATIVE [facility] PROTEIN NEGATIVE NEGATIVE [facility] NITRITE NEGATIVE NEGATIVE [facility] LEUKOCYTE ESTERASE NEGATIVE NEGATIVE [facility] Urine URINE SPECIMEN / Unknown 11/20/2024 3:37 PM CDT 11/20/2024 3:38 PM CDT Peggy Gregg MD URINE Final R esult [facility] [address] [place] [address], [facility] [address] [place] [address] * URINALYSIS MICROSCOPIC [[id number]] - routine (11/20/2024 3:37 PM CDT) Pathologist [facility] RBC 0-2 0-2, None Seen /HPF 11/20/2024 11:10 PM CDT [facility] WBC 0-2 0-2, 3-5, None Seen /HPF 11/20/2024 11:10 PM CDT [facility] BACTERIA None Seen None Seen, Rare, Few Bacteria/ HPF 11/20/2024 11:10 PM CDT [facility] EPITHELIAL CELLS None Seen None Seen, Few Epi/HPF 11/20/2024 11:10 PM CDT [facility] HYALINE CASTS 0-2 0-2, 3-5 /LPF 11/20/2024 11:10 PM CDT [facility] Urine URINE SPECIMEN / Unknown Non-Blood / Unknown 11/20/2024 3:37 PM CDT 11/20/2024 3:37 PM CDT Peggy Gregg MD URINE Final R esult Performing Organization Address City/[facility]/ZIP Co de Phone Number [facility] [address] [address], [place] * URINE CULTURE [68415.2] (11/20/2024 3:37 PM CDT) CULTURE <10,000 CFU/mL multiple organisms 11/22/2024 3:15 PM CDT [facility] Urine URINE SPECIMEN / Unknown Non-Blood / Unknown 11/20/2024 3:37 PM CDT 11/20/2024 3:37 PM CDT Peggy Gregg MD MICROBIOLOGY Final R esult Performing Organization Address City/[facility] Co de Phone Number [facility] [address] [address], from Last 3 Months Insurance MEDICARE PB ONLY MEDICARE PART B HB ONLY MEDICARE PART A HB ONLY Advance Directives Documents on File Type Date Recorded Patient Thread Clipper Expl anation Healthcare Directive 09/23/2013 8:21 AM [...] 3:08 PM 06/30/2016 2:32 AM Care Teams Validation Analyst Relationship Specialty Start Date End Date Peggy Gregg MD [address] [place] [address] PCP - General Family Practice 11/01/16 Leslie Diaz AuD [address] [place] [address] [address] Audiology 10/05/15
[2024-11-28 22:58] VITALS: BP 161/95; PULSE 67; RESP 16; O2SAT 96
== END 2024-11-28 23:06 | disposition home or self-care (01) ==
LOC: ED 22:48
PROVIDERS: Emergency Provider Emergency Medicine; PCP Family Medicine
DX: R33.9 Retention of urine, unspecified (principal)
CPT/HCPCS: 51702; 51798; 81001; 99282; 99283

== ENCOUNTER 2025-02-08 07:14 | Emergency (ER) | payer MEDICARE, SELFPAY ==
--- OUTSIDE RECORDS SUMMARY | 2025-02-08 07:16 | XMS_ITS | Data Portability ---
Author Organization [facility] Address [address] [place] [address] Care Team Providers Care Authorization Specialist Name Role Phone SILVIA CLARKE Primary Care Provider Assessment Encounter Date Assessment Date Assessment LastModified by Organization Details LastModified Time 12/10/2024 12/10/2024 89 year male with recent episode of retention [email or web address] Not available 12/10/2024 14:01:16 Plan of Treatment Reminders Order Date Submit Date Provider Last Modified By Organization Details Last Modified Time Details Appointments ESTABLIS HED 20 2024 10:40A M SUARABH See Not available Not available Not available URODYNAM ICS PROC 90 2024 10:00A M JUAN Nicole Not available Not available Not available Lab None recorded . Referral None recorded . Procedures urodynam ic testing, complex (PROC) 2024 025 Not available 02/04/2025 17:23:18 Surgeries None recorded . Imaging None recorded . Medication Orders Macrobid 100 mg capsule 2024 025 [id number], [address], [address], 12/10/2024 14:01:30 Macrobid 100 mg capsule 2024 025 [id number], [address], [address], 12/10/2024 14:01:30 Patient TargetsNo targets recorded. Patient Instructions Encounter Date Encounter Id Patient Instructions Last Modified By Organization Details Last Modified Time 12/10/2024 [id number] urodynamic studies: about these tests [email or web address] Not available 12/10/2024 14:01:28 Retention: Patient failed TOV today. Due to difficult catheter placement, Dr. Mueller placed the francisco catheter using a cysto and guidewire. Bladder appearance via cysto showed significant bladder trabeculations, concerning for an end stage bladder Patient will complete UDS to eval for bladder function. If he has a functional bladder, can consider prostate procedure, otherwise he may be catheter dependant Abx sent to take now due to multiple catheter insertions today [email or web address] Not available 12/10/2024 14:10:46 01/12/2025 [id number] Patient is an 89-year-old male presents today for follow-up of urinary retention. Patient with chronic urinary retention and difficult Francisco catheter placement during last visit. He is due for catheter exchange today, successfully changed over a wire. He was previously recommended urodynamics. He currently lives in [place] and only travels back to [place] sparingly. At this time, they would like to hold off on urodynamics but will need catheter exchanged over a wire with urologist monthly. Will arrange for this. [email or web address] Not available 01/12/2025 11:55:56 Reason for Referral None Reported. Problems Name Problem SNOMED Code Status Onset Date Resolution Date Notes Provider Name and Address Organization Details Recorded Time John hematuria 063226219 Active 2016 R31.0 : Gross hematuria - Notes:Due to BPH 90g vascular gland. 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 Not Available [facility] 0 01:59:21 Problem Notes None recorded. Procedures Surgical History Date Name Laterality Status Provider Name and Address Organization Details Recorded Time 01/13/20 25 COMPLEX VISIT completed GONZALO MALIK [address] [place] [address],[address], [place], [address], [facility] 01/12/2025 11:54:45 01/13/20 25 Urethral Catheter Change completed SHARI ABURTO, PAC [address], [place], [address], [facility] 01/12/2025 11:54:29 01/13/20 25 Past Data Reviewed completed SHARI ABURTO, PAC [address], [place], [address], [facility] 01/12/2025 11:54:51 12/11/19 25 CystoscopyMale completed SAURABH Bates [address], [place], [address], [facility] 12/10/2024 14:01:03 12/11/19 25 Fill and Pull/Voiding Trial/TOV completed Chantel Fountain [facility] 12/10/2024 13:03:38 Imaging Results None recorded. Procedure Notes None recorded. Medical Equipment None Reported. Allergies Allergen ID Allergen Name Allergen Category Reaction Reaction Severity Criticality Documentation Date Start Date Code Code System Note Provider Name and Address Organization Details Recorded Time 356107 ketoconaz ole medicatio n rash Not available Not available 12/10/20242010 6135 RxNorm infla mmati on Chantel jones [facility] 5 10:55:56 583034 latex environme nt,medica tion rash Not available Not available 12/10/20242006 82660 91 RxNorm Patie carlos a state s he has a sever e latex aller gy (not anaph ylaxi s). christiana Gomez nt had post- op compl icati ons at [place] due to sever e skin react ion after latex conta ining ortiz ges were appli ed. Chantel jones [facility] 5 10:56:09 109066 Product containin g penicilli n (product) medicatio n itching Not available Not available 12/10/20242006 74750 8001 SNOMED pric kly skin Chantel jones [facility] 5 10:56:14 311308 povidone- iodine medicatio n hives Not available Not available 12/10/20242004 8611 RxNorm Other react ion(s ): Swell ing huge welt from prep of skin on back Chantel jones [facility] 5 10:56:18 178378 Substance with sulfonami de structure and antibacte rial mechanism of action (substanc e) medicatio n Not available Not available Not available 12/10/20242006 28009 8003 SNOMED unrec ogniz ed react ion (text : *Unkn own, code: [id number]) (from exter nal sourc e) Chantel Ayersroly karen [facility] 5 10:56:22 Medications Name Sig Start Date Stop Date Status Note LastModified by Organization Details LastModified Time triamcinolon e acetonide 0.1 % topical cream Apply topically to affected area(s) two times daily.* active Not Available Not Available No t Available Macrobid 100 mg capsule Take 1 capsule, twice daily, starting 3 days prior to urodynamic testing 2024 active Not Available Not Available Not Avai lable levothyroxin e 88 mcg tablet TAKE ONE TABLET BY MOUTH ONE TIME DAILY IN THE MORNING BEFORE BREAKFAST* active Not Available Not Available N ot Available Vitals None Recorded Social History Question Answer Notes LastModified by Organizat ion Details LastModified Time Tobacco Smoking Status Never Smoker Chantel jones [facility] 12/10/2024 11:03:30 Do You Have An Advance Directive? No [email or web address] Information not available 01/12/2025 What Is Your Level Of Caffeine Consumption? None [email or web address] Information not available 12/10/2024 Do You Have A Medical Power Of Club Attendant? No [email or web address] Information not available 01/12/2025 What Was The Date Of Your Most Recent Tobacco Screening? 01/12/2025 [email or web address] Information not available 01/12/2025 Have You Ever Been Counseled For Unhealthy Alcohol Use? No [email or web address] Information not available 12/10/2024 Has Tobacco Cessation Counseling Been Provided? No [email or web address] Information not available 12/10/2024 How Many Days In The Past Year Have You Consumed 5 Or More Drinks? 0 [email or web address] Information not available 12/10/2024 Sex: Unknown Functional Status Question Answer Note LastModified by Organizat ion Details LastModified Time Do you use any illicit or recreational drugs? No [email or web address] Information not available 12/10/2024 Do you or have you ever used any other forms of tobacco or nicotine? No [email or web address] Information not available 12/10/2024 What is your level of alcohol consumption? Occasional [email or web address] Information not available 12/10/2024 Mental Status None recorded. Family History Relationship Description Onset Age of this Age Resolved Age Notes LastModified by Organization Details LastModified Time Unspecified Relation Family history of diabetes mellitus [email or web address] Not available 2024 11:03:48 Medical History Condition Response High Blood Pressure N Kidney Stones Y Depression N Lung Disease N GERD/Acid Reflux N Sexually Transmitted Infection N Diabetes N Bleeding Disorder N Cancer N High Cholesterol N Heart Disease N Immunizations Vaccine Type Date Status Note Provider Nam e and Address Organization Details Recorded Time Td (adult), 2 Lf tetanus toxoid, preservative free, adsorbed 6 completed Not Available formerly [facility] 01/12/2025 11:18:30 Influenza, split virus, trivalent, preservative 3 completed Not Available formerly [facility] 01/12/2025 11:18:30 Influenza, split virus, trivalent, preservative 4 completed Not Available formerly [facility] 01/12/2025 11:18:30 Novel [id number], all formulations 0 completed Not Available formerly [facility] 01/12/2025 11:18:30 Influenza, split virus, trivalent, PF 1 completed Not Available formerly [facility] 01/12/2025 11:18:30 Influenza, split virus, trivalent, preservative 2 completed Not Available formerly [facility] 01/12/2025 11:18:30 Tdap 3 completed Not Available formerly [facility] 01/12/2025 11:18:30 zoster live 3 completed Not Available formerly [facility] 01/12/2025 11:18:30 Influenza, high-dose, trivalent, PF 4 completed Not Available [facility] 01/12/2025 11:18:30 Td (adult), 5 Lf tetanus toxoid, preservative free, adsorbed 7 completed Not Available [facility] 01/12/2025 11:18:30 pneumococcal polysaccharide PPV23 6 completed Not Available [facility] 01/12/2025 11:18:30 Influenza, high-dose, trivalent, PF 7 completed Not Available [facility] 01/12/2025 11:18:30 zoster recombinant 8 completed Not Available [facility] 01/12/2025 11:18:30 Pneumococcal conjugate PCV 13 8 completed Not Available [facility] 01/12/2025 11:18:30 zoster recombinant 8 completed Not Available [facility] 01/12/2025 11:18:30 Influenza, high-dose, trivalent, PF 8 completed Not Available [facility] 01/12/2025 11:18:30 Influenza, adjuvanted, trivalent, PF 9 completed Not Available [facility] 01/12/2025 11:18:30 Influenza, high-dose, quadrivalent, PF 0 completed Not Available [facility] 01/12/2025 11:18:30 COVID-19, mRNA, LNP-S, PF, 30 mcg/0.3 mL dose 1 completed Not Available [facility] 01/12/2025 11:18:30 COVID-19, mRNA, LNP-S, PF, 30 mcg/0.3 mL dose 1 completed Not Available [facility] 01/12/2025 11:18:30 Influenza, high-dose, quadrivalent, PF 1 completed Not Available [facility] 01/12/2025 11:18:30 COVID-19, mRNA, LNP-S, PF, 30 mcg/0.3 mL dose 1 completed Not Available [facility] 01/12/2025 11:18:30 COVID-19, mRNA, LNP-S, PF, 30 mcg/0.3 mL dose, zhanna-sucrose 2 completed Not Available [facility] 01/12/2025 11:18:30 COVID-19, mRNA, LNP-S, bivalent, PF, 30 mcg/0.3 mL dose 2 completed Not Available formerly [facility] 01/12/2025 11:18:30 Influenza, high-dose, quadrivalent, PF 2 completed Not Available formerly [facility] 01/12/2025 11:18:30 COVID-19, mRNA, LNP-S, PF, 50 mcg/0.5 mL 3 completed Not Available formerly [facility] 01/12/2025 11:18:30 Influenza, adjuvanted, quadrivalent, PF 3 completed Not Available formerly [facility] 01/12/2025 11:18:30 COVID-19, mRNA, LNP-S, PF, 50 mcg/0.5 mL 4 completed Not Available formerly [facility] 01/12/2025 11:18:30 COVID-19, mRNA, LNP-S, PF, 50 mcg/0.5 mL 4 completed Not Available formerly [facility] 01/12/2025 11:18:30 Influenza, adjuvanted, trivalent, PF 4 completed Not Available formerly [facility] 01/12/2025 11:18:30 COVID-19, mRNA, LNP-S, PF, 50 mcg/0.5 mL 5 completed Not Available formerly [facility] 01/12/2025 11:18:30 Past Encounters Encounter ID Performer Location Encounter Start Date Encounter Closed Date Diagnosis/Indication Diagnosis SNOMED-CT Code Diagnosis ICD10 Code Diagnosis Note [id number] SAURABH Seero_Woo [address] [address] 12/10/2024 10:53:11 12/17/2024 16:38:56 Retention of urine 613115819 R33.9 [id number] GONZALO MALIKro_Woo [address] [address] 01/12/2025 11:15:06 01/12/2025 12:54:13 Retention of urine 512913405 R33.9 Health Concerns Section Related Observation LastModified by Organization Detai ls LastModified Time None Recorded Concern Status LastModified by Organization Details LastModified Time None Recorded Advance Directives Directive N: Payers Insurance Date Sequence Insurance Name Policy Number Policy Jacinto Covered Member ID Jacinto Member ID Guarantor Name 02/05/2025 1 [place]ARE [place] [employer] Giovanny Olivares [id number] Giovanny Olivares Notes Date Note Type Note Provider Name and Address Organization Details Recorded Time 12/10/2024 text/html 89 year male wit h recent episode of retention He initially presented to the ER on 11/18/24 with urinary retention. Francisco was placed at that time.Francisco was removed at his PCP the morning of 11/28/24 and was subsequently replaced later that day in the emergency room after failing to void at home SAURABH Bates [address], [place], [address], [facility] 12/10/2024 14:10:57 01/12/2025 text/html Patient is an 89-year-old male presents today for follow-up of urinary retention. Patient with recently failed voiding trials and difficult catheter placement that required cystoscopy and placement over guidewire. He has been tolerating the Rfancisco catheter well without issues. Presents today for catheter exchange. He has previously been recommended urodynamics however is unsure if he would like to proceed with this as he travels from [place] back to here intermittently. GONZALO MALIK [address] [place] [address],[address], [place], [address], [facility] 01/12/2025 11:56:09
--- OUTSIDE RECORDS SUMMARY | 2025-02-08 07:16 | XMS_ITS | Clinical Summary ---
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 However, patient had post-op complications at [place] due to severe skin reaction after latex [...] Encounters Date Type Department Care Team Description 01/12/2025 Orders Only [facility] Scanner 1 scan: (1-Ord) [place] [facility], URETHRAL CATHETER CHANGE, 01/12/2025 12/10/2024 Orders Only [facility] Scanner 1 scan: (1-Ord) [place] [facility], CYSTOSCOPY, 12/10/2024 12/08/2024 8:15 AM CDT Orders Only [facility] [place] [address] [address] Lab, [place] [facility] 12/08/2024 Travel 11/28/2024 2:40 PM CDT Nurse/Clinic Staff Only [facility] [address] [place] [address] Removal (Catheter removal ) 11/28/2024 Telephone [facility] [address] [facility] [address] Peggy Gregg MD Appointment 11/28/2024 Travel 11/24/2024 Telephone [facility] [address] [place] [address] Peggy Gregg MD Results 11/21/2024 Telephone [facility] [address] [facility] [address] Peggy Gregg MD Results 11/20/2024 2:25 PM CDT Office Visit [facility] [address] [facility] [address] Peggy Gregg MD Derm Problem (Left ankle; rash as well as right foot and left foot.); Urinary Problem (Frequency in urination; every half hour to an hour to go); Weight (Has gained weight and needs to loose about 20 lbs.) 11/20/2024 Travel from Last 3 Months Immunizations Immunization Administration Dates Next Due COVID-19 VACCINE SPIKEVAX (M ODERNA 50MCG/0.5ML) 12YO+ PFS 06/03/2024,11/22/2023,06/12/2023 COVID-19 vaccine (TelunjukBio NTech 30mcg/0.3mL) 12YO+ BIVALENT PF, MDV 05/04/2022 COVID-19 vaccine (Pfizer-Bio NTech 30mcg/0.3mL) 12YO+ SYEDA-SUCROSE PF, MDV 11/23/2021 COVID-19 vaccine (ClearFlow-Bio NTech 30mcg/0.3mL) PF, MDV 05/14/2021,10/12/2020,09/21/2020 Influenza A [...] Arthritis Mother rheumatoid Other Mother age 96, CT , breast ca, arthritis Anesthesia Malignant Hyperthermia [...] on file Legal 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 Gender Identity Not on file Sexual [...] (165 lb 12.8 oz) 024 10:28 AM RECOVERY MANAGER Height 177.8 cm (5' 10) 07/16/2024 10: 28 AM RECOVERY MANAGER Body Mass Index 23.79 07/16/2024 10:28 AM RECOVERY MANAGER Plan of Treatment Health Maintenance Due Date Last Done Comments RSV vaccine for adults or (1 - 1-dose 75+ series) 2010 Tetanus booster 10/07/2022 10/07/2012, 02/11, 09/21/1995, Additional history exists Depression screening for age 12+ 06/25/2025 06/25/2024, 05/23/2023, 02/02/2022, Additional history exists Medicare Wellness for age 65+ 06/26/2025 06/25/2024, 02/02/2022, 11/01/2020, Additional history exists BMI (ht and wt on same day) for age 18+ 07/16/2025 07/16/2024, 06/25/2024, 02/02/2022, Additional history exists Tdap Completed 10/07/2012, 09/21/1995 Pneumococcal series for age 50+ Completed 01/03/2018, 10/11/2005 Zoster (shingles) series for age 50+ Completed 03/20/2018, 12/31/2017, 03/20/2013 Influenza Vaccine Completed 06/03/2024, , 04/25/2019, Additional history exists COVID-19 vaccine series Completed 01/10/20 25, 06/03/2024, 11/22/2023, Additional history exists Hepatitis B series for 19+ Aged Out N o longer eligible based on patient's age to complete this topic Medical Devices Implanted Type Area Regulatory Agency Director Device Identifier Shelf Expiration Date Model / Serial / Lot Stent Uret [id number] Contour - [id number] Implanted:Qty: 1 on 06/29/2016 by Colin Zhao MD at [facility] Right: Ureter [facility] [id number]# / / [id number] Stent Uret [id number] Contour - [id number] Implanted:Qty: 1 on 09/12/2017 by Tripp oHward MD at [facility] Right: Ureter [facility] 06/26/2020 [id number]# / / [id number] Procedures Procedure Name Priority Date/Time Associated Diagnosis Comments SCAN-OPERATIVE/PROCE DURE REPORT 01/12/2025 12:00 AM CDT SCAN-OPERATIVE/PROCE DURE REPORT 12/10/2024 12:00 AM CDT CREATININE Routine 12/08/2024 8:17 AM CDT BPH with urinary obstruction CREATININE Routine 11/20/2024 4:40 PM CDT BPH with urinary obstruction URINALYSIS MICROSCOPIC Routine 11/20/2024 3:37 PM CDT Urine frequency URINE CULTURE Routine 11/20/2024 3:37 PM CDT Urine frequency URINALYSIS MACROSCOPIC - [facility] ONLY POC DIP (QUEST) Routine 11/20/2024 3:37 PM CDT Urine frequency from Last 3 Months Results * SCAN-OPERATIVE/PROCEDURE REPORT (01/12/2025 12:00 AM CDT) us Scanner OTHER Final Result * SCAN-OPERATIVE/PROCEDURE REPORT (12/10/2024 12:00 AM CDT) us Scanner OTHER Final Result * CREATININE (12/08/2024 8:17 AM CDT) Only the most recent of2 resultswithin the time period is included. CREATININE 1.17 0.70 - 1.22 mg/dL [facility] EGFR 60 > OR = 60 mL/min/1.73 m2 [facility] Blood BLOOD SPECIMEN / Unknown 12/08/2024 8:17 AM CDT 12/08/2024 8:17 AM CDT us Peggy Gregg MD CHEMISTRY Final R esult Performing Organization Address City/State/[facility] Co de Phone Number [employer] [address] [address], [employer] [address] * (ABNORMAL) POCT Urinalysis Dipstick Only [[id number]] (11/20/2024 3:37 PM CDT) PH 6.0 5.0 - 8.0 [facility] SPECIFIC GRAVITY 1.015 1.001 - 1.035 [facility] GLUCOSE NEGATIVE NEGATIVE [facility] BILIRUBIN NEGATIVE NEGATIVE [facility] KETONES NEGATIVE NEGATIVE [facility] OCCULT BLOOD TRACE(A) NEGATIVE [facility] PROTEIN NEGATIVE NEGATIVE [facility] NITRITE NEGATIVE NEGATIVE [facility] LEUKOCYTE ESTERASE NEGATIVE NEGATIVE [facility] Urine URINE SPECIMEN / Unknown 11/20/2024 3:37 PM CDT 11/20/2024 3:38 PM CDT Peggy Gregg MD URINE Final R esult [facility] [address] [place] [address], [place] [phone] [facility] [address] [place] [address] * URINALYSIS MICROSCOPIC [90120.1] - routine (11/20/2024 3:37 PM CDT) RBC 0-2 0-2, None Seen /HPF 11/20/2024 11:10 PM CDT [facility] WBC 0-2 0-2, 3-5, None Seen /HPF 11/20/2024 11:10 PM CDT [facility] BACTERIA None Seen None Seen, Rare, Few Bacteria/ HPF 11/20/2024 11:10 PM CDT [facility] EPITHELIAL CELLS None Seen None Seen, Few Epi/HPF 11/20/2024 11:10 PM CDT [facility] HYALINE CASTS 0-2 0-2, 3-5 /LPF 11/20/2024 11:10 PM CDT [facility] Urine URINE SPECIMEN / Unknown Non-Blood / Unknown 11/20/2024 3:37 PM CDT 11/20/2024 3:37 PM CDT Peggy Gregg MD URINE Final R esult [facility] [address] [place] [address], [place] * URINE CULTURE [25595.2] (11/20/2024 3:37 PM CDT) CULTURE <10,000 CFU/mL multiple organisms 11/22/2024 3:15 PM CDT [facility] Urine URINE SPECIMEN / Unknown Non-Blood / Unknown 11/20/2024 3:37 PM CDT 11/20/2024 3:37 PM CDT us Peggy Gregg MD MICROBIOLOGY Final R esult [facility] [address] [address], [place] from Last 3 Months Insurance MEDICARE [place] ONLY Member Subscriber Plan / Payer (Ef fective 2010-Present) Name:Giovanny Olivares Member ID:[id number] Relation to Subscriber:Self Name:Giovanny Olivares Subscriber ID:[id number] Payer ID:Not on file Group ID:Not on file Type:Not on file Address: ATTN: CLAIMS [address] MEDICARE PART B [place] ONLY Member Subscriber Plan / Payer (Ef fective 2000-Present) Name:Giovanny Olivares Member ID:[id number] Relation to Subscriber:Self Name:Giovanny Olivares Subscriber ID:[id number] Payer ID:Not on file Group ID:Not on file Type:Not on file Address: ATTN: CLAIMS [address] MEDICARE PART A [place] ONLY Advance Directives Documents on File Type Date Recorded Patient Asphalt Paver Expl anation Healthcare Directive 09/23/2013 8:21 AM [...] 3:08 PM 06/30/2016 2:32 AM Care Teams Admissions Recruiter Relationship Specialty Start Date End Date Peggy Gregg MD [address] [place] [address] [address] PCP - General Family Practice 11/01/16 Leslie Diaz AuD [address] [place] [address] [address] Audiology 10/05/15
--- OUTSIDE RECORDS SUMMARY | 2025-02-08 07:16 | XMS_ITS | Clinical Summary ---
Author Organization [facility] [employer] Formerly [facility] Address [address] [address] Phone Care Team Providers Care Manager Body Name Role Phone Peggy Gregg MD Primary Care Provider Allergies Active Allergy Reactions Criticality Noted Date Comments Povidone Iodine Hives,Swelling High 05/05/2005 huge welt from prep of skin on back Environmental Rhinitis Low 05/05/2005 hayfever like systems Food Rhinitis Low 05/05/2005 throat sore from many fruits, and vegetables FRESH allergic also to most nuts Most okay if cooked Ketoconazole Other Low 01/16/2013 [facility] Record Scanned 08/24/14 Latex RASH Medium [...] Active Problems No known active problems Immunizations Immunization Administration Dates Next Due COVID-19 mRNA Vaccine [...] (Age 89) Arterioscleros is Mother (Age 96) [place], breast can cer, arthritis Social History Tobacco [...] on file 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
--- OUTSIDE RECORDS SUMMARY | 2025-02-08 07:16 | XMS_ITS | Continuity of Care Document ---
Author Organization [facility] Address [address] [facility] [address] [place] [address] Care Team Providers Care Electric Meter Repairer Apprentice Name Role Phone TRICIAELSY ABDALLAISTIN Primary Care Provider [phone] Assessment No assessment recorded. Plan of Treatment Reminders Order Date Submit Date Provider Last Modified By Organization Details Last Modified Time Details Appointments ESTABLIS HED 20 2024 10:40A M SAURABH See Not available Not available Not available URODYNAM ICS PROC 90 2024 10:00A M JUAN Nicole Not available Not available Not available Lab None recorded . Referral None recorded . Procedures None recorded . Surgeries None recorded . Imaging None recorded . Medication Orders None recorded . Patient TargetsNo targets recorded. Patient Instructions Encounter Date Encounter Id Patient Instructions Last Modified By Organization Details Last Modified Time 01/12/2025 [id number] Patient is an 89-year-old male presents today for follow-up of urinary retention. Patient with chronic urinary retention and difficult Echevarria catheter placement during last visit. He is due for catheter exchange today, successfully changed over a wire. He was previously recommended urodynamics. He currently lives in [place] and only travels back to [place] sparingly. At this time, they would like to hold off on urodynamics but will need catheter exchanged over a wire with urologist monthly. Will arrange for this. [email or web address] Not available 01/12/2025 11:55:56 Reason for Referral None Reported. Problems Name Problem SNOMED Code Status Onset Date Resolution Date Notes Provider Name and Address Organization Details Recorded Time John hematuria 897383927 Active 2016 R31.0 : Gross hematuria - Notes:Due to BPH 90g vascular gland. 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 Not Available [facility] 0 01:59:21 Problem Notes None recorded. Procedures Surgical History Date Name Laterality Status Provider Name and Address Organization Details Recorded Time 01/13/20 25 COMPLEX VISIT completed GONZALO MALIK [address] [place] [address],[address], [address] [place] [address], [facility] 01/12/2025 11:54:45 01/13/20 25 Urethral Catheter Change completed GONZALO MALIK [address] [place] [address],[address], [address] [place] [address] 01/12/2025 11:54:29 01/13/20 25 Past Data Reviewed completed GONZALO MALIK [address] [place] [address] 01/12/2025 11:54:51 12/11/19 25 CystoscopyMale completed SAURABH Bates [address] [place] [address], [address] [place] [address], [facility] 12/10/2024 14:01:03 12/11/19 25 Fill and Pull/Voiding Trial/TOV completed Chantel [facility] 12/10/2024 13:03:38 Imaging Results None recorded. Procedure Notes None recorded. Medical Equipment None Reported. Allergies Allergen ID Allergen Name Allergen Category Reaction Reaction Severity Criticality Documentation Date Start Date Code Code System Note Provider Name and Address Organization Details Recorded Time 833998 ketoconaz ole medicatio n rash Not available Not available 12/10/20242010 6135 RxNorm infla mmati on Chantel Александр [facility] 5 10:55:56 024235 latex environme nt,medica tion rash Not available Not available 12/10/20242006 46432 91 RxNorm Patie nt state s he has a sever e latex aller gy (not anaph ylaxi s). Howev er, christiana nt had post- op compl icati ons at [facility] due to sever e skin react ion after latex conta ining ortiz ges were appli ed. Chantel Fountain karen [facility] 10:56:09 467801 Product containin g penicilli n (product) medicatio n itching Not available Not available 12/10/20242006 16809 8001 SNOMED pric kly skin Chantel Fountain karen [facility] 10:56:14 084295 povidone- iodine medicatio n hives Not available Not available 12/10/20242004 8611 RxNorm Other react ion(s ): Swell ing huge welt from prep of skin on back Chantel Potbaxter [facility] 10:56:18 068614 Substance with sulfonami de structure and antibacte rial mechanism of action (substanc e) medicatio n Not available Not available Not available 12/10/20242006 82798 8003 SNOMED unrec ogniz ed react ion (text : *Unkn own, code: 82902 [id number]) (from exter nal sourc e) Chantel Ayersbaxter [facility] 10:56:22 Medications Name Sig Start Date Stop [...] Time Tobacco Smoking Status Never Smoker Chantel Ayersbaxter [facility] 12/10/2024 11:03:30 Do You Have An Advance Directive? No [email or web address] Information not available 01/12/2025 What Is Your Level Of Caffeine Consumption? None [email or web address] Information not available 12/10/2024 Do You Have A Medical Power Of Director Of Acquisition Marketing? No [email or web address] Information not available 01/12/2025 What Was The Date Of Your Most Recent Tobacco Screening? 01/12/2025 [email or web address] Information not available 01/12/2025 Have You Ever Been Counseled For Unhealthy Alcohol Use? No [email or web address] Information not available 12/10/2024 Has Tobacco Cessation Counseling Been Provided? No Information not available 12/10/2024 How Many Days In The Past Year Have You Consumed 5 Or More Drinks? 0 [email or web address] Information not available 12/10/2024 Sex: Unknown Functional Status Question Answer Note LastModified by Organizat ion Details LastModified Time Do you use any illicit or recreational drugs? No [email or web address] Information not available 12/10/2024 Do you or have you ever used any other forms of tobacco or nicotine? No [email or web address] Information not available 12/10/2024 What is your level of alcohol consumption? Occasional [email or web address] Information not available 12/10/2024 Mental Status None recorded. Family History Relationship Description Onset Age of this Age Resolved Age Notes LastModified by Organization Details LastModified Time Unspecified Relation Family history of diabetes mellitus [email or web address] Not available 2024 11:03:48 Medical History Condition Response High Blood Pressure N Kidney Stones Y Depression N Lung Disease N GERD/Acid Reflux N Sexually Transmitted Infection N Cancer N High Cholesterol N Diabetes N Bleeding Disorder N Heart Disease N Immunizations Vaccine Type Date Status Note Provider Nam e and Address Organization Details Recorded Time Td (adult), 2 Lf tetanus toxoid, preservative free, adsorbed 6 completed Not Available [facility] 01/12/2025 11:18:30 Influenza, split virus, trivalent, preservative 3 completed Not Available [facility] 01/12/2025 11:18:30 Influenza, split virus, trivalent, preservative 4 completed Not Available [facility] 01/12/2025 11:18:30 Novel [id number], all formulations 0 completed Not Available [facility] 01/12/2025 11:18:30 Influenza, split virus, trivalent, PF 1 completed Not Available [facility] 01/12/2025 11:18:30 Influenza, split virus, trivalent, preservative 2 completed Not Available [facility] 01/12/2025 11:18:30 Tdap 3 completed Not Available [facility] 01/12/2025 11:18:30 zoster live 3 completed Not Available [facility] 01/12/2025 11:18:30 Influenza, high-dose, trivalent, PF 4 completed Not Available [facility] 01/12/2025 11:18:30 Td (adult), 5 Lf tetanus toxoid, preservative free, adsorbed 7 completed Not Available [facility] 01/12/2025 11:18:30 pneumococcal polysaccharide PPV23 6 completed Not Available [facility] 01/12/2025 11:18:30 Influenza, high-dose, trivalent, PF 7 completed Not Available [facility] 01/12/2025 11:18:30 zoster recombinant 8 completed Not Available [facility] 01/12/2025 11:18:30 Pneumococcal conjugate PCV 13 8 completed Not Available [facility] 01/12/2025 11:18:30 zoster recombinant 8 completed Not Available [facility] 01/12/2025 11:18:30 Influenza, high-dose, trivalent, PF 8 completed Not Available [facility] 01/12/2025 11:18:30 Influenza, adjuvanted, trivalent, PF 9 completed Not Available [facility] 01/12/2025 11:18:30 Influenza, high-dose, quadrivalent, PF 0 completed Not Available [facility] 01/12/2025 11:18:30 COVID-19, mRNA, LNP-S, PF, 30 mcg/0.3 mL dose 1 completed Not Available [facility] 01/12/2025 11:18:30 COVID-19, mRNA, LNP-S, PF, 30 mcg/0.3 mL dose 1 completed Not Available [facility] 01/12/2025 11:18:30 Influenza, high-dose, quadrivalent, PF 1 completed Not Available [facility] 01/12/2025 11:18:30 COVID-19, mRNA, LNP-S, PF, 30 mcg/0.3 mL dose 1 completed Not Available [facility] 01/12/2025 11:18:30 COVID-19, mRNA, LNP-S, PF, 30 mcg/0.3 mL dose, [id number]-[id number] 2 completed Not Available [facility] 01/12/2025 11:18:30 COVID-19, mRNA, LNP-S, bivalent, PF, 30 mcg/0.3 mL dose 2 completed Not Available [facility] 01/12/2025 11:18:30 Influenza, high-dose, quadrivalent, PF 2 completed Not Available [facility] 01/12/2025 11:18:30 COVID-19, mRNA, LNP-S, PF, 50 mcg/0.5 mL 3 completed Not Available [facility] 01/12/2025 11:18:30 Influenza, adjuvanted, quadrivalent, PF 3 completed Not Available [facility] 01/12/2025 11:18:30 COVID-19, mRNA, LNP-S, PF, 50 mcg/0.5 mL 4 completed Not Available [facility] 01/12/2025 11:18:30 COVID-19, mRNA, LNP-S, PF, 50 mcg/0.5 mL 4 completed Not Available [facility] 01/12/2025 11:18:30 Influenza, adjuvanted, trivalent, PF 4 completed Not Available [facility] 01/12/2025 11:18:30 COVID-19, mRNA, LNP-S, PF, 50 mcg/0.5 mL 5 completed Not Available [facility] 01/12/2025 11:18:30 Past Encounters Encounter ID Performer Location Encounter Start Date Encounter Closed Date Diagnosis/Indication Diagnosis SNOMED-CT Code Diagnosis ICD10 Code Diagnosis Note [id number] GONZALO MALIK [facility] [place] [address] [facility] [place] [address] 01/12/2025 11:15:06 01/12/2025 12:54:13 Retention of urine [id number] R33.9 Health Concerns Section Related Observation LastModified by Organization Detai ls LastModified Time None Recorded Concern Status LastModified by Organization Details LastModified Time None Recorded Payers Encounter Date Sequence Insurance Name Policy Number Policy Jacinto Covered Member ID Jacinto Member ID Guarantor Name 01/12/2025 1 [place] Giovanny Olivares [id number] Giovanny Olivares Notes Date Note Type Note Provider Name and Address Organization Details Recorded Time 01/12/2025 text/html Patient is an 89-year-old male presents today for follow-up of urinary retention. Patient with recently failed voiding trials and difficult catheter placement that required cystoscopy and placement over guidewire. He has been tolerating the Echevarria catheter well without issues. Presents today for catheter exchange. He has previously been recommended urodynamics however is unsure if he would like to proceed with this as he travels from [place] back to here intermittently. GONZALO MALIK [address] [facility],[address], [place], [address], [facility] 01/12/2025 11:56:09
[2025-02-08 07:32] VITALS: BP 135/70; PULSE 59; RESP 18; TEMP 36.7; O2SAT 99; BMI 21.6
--- NOTE | 2025-02-08 08:03 | ED.GENADULT ---
HPI - General Adult General Chief complaint: Constipation Stated complaint: urinary/rectal problems Time Seen by Provider: 02/08/25 07:57 History of Present Illness HPI narrative: Patient is a 89-year-old gentleman who has a chronic urinary catheter. He is having difficulties with this catheter emptying. He has an area of the catheter duct taped together and the flow is minimal. Is significant abdominal cramping secondary to bladder spasm. He has had no fevers no chills no night sweats. He has had no other signs if fever or infection. Who very much like his catheter fixed. He has also not had a bowel movement for last 4 days. He is passing gas without any difficulty. Related Data Home Medications ?Medication ?Instructions ?Recorded ?Confirmed levothyroxine 88 mcg tablet 88 mcg PO QAM 11/20/24 11/28/24 Allergies Allergy/AdvReac Type Severity Reaction Status Date / Time adhesive Allergy Unknown Verified 11/28/24 21:03 ketoconazole Allergy Unknown Verified 11/28/24 21:03 latex Allergy Unknown Verified 11/28/24 21:03 Penicillins Allergy Unknown Verified 11/28/24 21:03 povidone-iodine (From Allergy Unknown Verified 11/28/24 21:03 Betadine) Sulfa (Sulfonamide Allergy Unknown Verified 11/28/24 21:03 Antibiotics) Review of Systems Status of ROS: Reports: 10 or more systems reviewed and unremarkable except as noted in History and below [facility] Social History Smoking Status: Never smoker How often do you have a drink containing alcohol: never AUDIT-C Alcohol total score: 0 Non-prescribed substance use: denies use service: No Exam Narrative: Exam Narrative: EXAM GENERAL: Patient appears very uncomfortable. EYES: No scleral icterus. LYMPH: No supraclavicular or cervical lymphadenopathy. SKIN: Visible skin seen during exam normal or with benign process only. EXT: No dependent lower extremity pedal edema. HEART: Regular rate and rhythm with no murmurs, rubs, or gallops. LUNGS: Clear to auscultation bilaterally with no crackles or wheezes. ABD: Soft, non tender, non distended. PSYCH: Good eye contact, speech is not pressured. Echevarria catheter in place. Const: Vital Signs, click to edit/add: Vital Signs - 24 hr 02/08/25 07:32 Temperature 98.1 F Pulse Rate [Right Pulse Oximeter] 59 L Respiratory Rate 18 Blood Pressure [Ri ght Upper Arm] 135/70 Pulse Oximetry 99 Oxygen Delivery Me thod Room Air Course Vital Signs Vital signs: Initial Vital Signs Temperature 98.1 F 02/08/25 07:32 Temperature Source Temporal Artery Scan 02/08/25 07:32 Pulse Rate 59 L 02/08/25 07:32 Respiratory Rate 18 02/08/25 07:32 Blood Pressure 135/70 02/08/25 07:32 Blood Pressure Mean 91 02/08/25 07:32 Blood Pressure Position Sitting 02/08/25 07:32 Pulse Oximetry 99 02/08/25 07:32 Oxygen Delivery Method Room Air 02/08/25 07:32 Vital Signs Temperature 98.1 F 02/08/25 07:32 Pulse Rate 59 L 02/08/25 07:32 Respiratory Rate 18 02/08/25 07:32 Blood Pressure 135/70 02/08/25 07:32 Pulse Oximetry 99 02/08/25 07:32 Oxygen Delivery Method Room Air 02/08/25 07:32 Temperature 98.1 F 02/08/25 07:32 Pulse Rate 59 L 02/08/25 07:32 Respiratory Rate 18 02/08/25 07:32 Blood Pressure 135/70 02/08/25 07:32 Pulse Oximetry 99 02/08/25 07:32 Oxygen Delivery Method Room Air 02/08/25 07:32 Medical Decision Making MDM Narrative Medical decision making narrative: Patient is a 89-year-old gentleman who comes in today with a malfunctioning catheter which is been in for a month. Under the care of a urologist. We did manipulate the catheter and flushed it is malfunctioning fine. Urine looks very cloudy. It does show signs of infection which she would expect with a catheter of that length. I do think is reasonable treated with Cipro for the next 5 days as he follows up with Urology in the next 2-3 days. Patient is also constipated and we did recommend magnesium citrate [id number] with primary care follow-up as needed. Lab Data Labs: Lab Results 02/08/25 Range/Units 08:31 Urine Color Light yellow (Yellow) Urine Appearance Cloudy A (Clear) Urine pH 8.0 (5.0-8.5) Ur Specific [place] 1.025 (1.000-1.030) Urine Protein 4+ A (Negative) Urine Glucose (UA) Negative (Negative) Urine Ketones Negative (Negative) Urine Blood 3+ A (Negative) Urine Nitrite Negative (Negative) Urine Bilirubin Negative (Negative) Urine Urobilinogen 0.2 (0.2-1.0) Ur Leukocyte Esterase 3+ A (Negative) Discharge Plan Discharge Clinical Impression: Acute UTI Patient Disposition: Home, Self-Care Condition: Stable Instructions: Urinary Tract Infection in Men (ED) Additional Instructions: Cipro via in stay meds as directed 1 bottle of 10 oz of magnesium citrate the counter Follow-up with urology this week. Activity Level: No Restrictions Discharge Diet: Regular Prescriptions: No Action levothyroxine 88 mcg tablet 88 mcg PO QAM Follow Up/Referrals: Peggy Gregg MD [Primary Care Provider, Family Practice] Stand Alone Forms: [employer] Info Instructions
--- NOTE | 2025-02-08 08:28 | PC.NURSE ---
pt catheter irrigated with 100ml NS, urine sample collected
[2025-02-08 08:46] LABS: Appearance Urine Cloudy (Clear); Bilirubin Urine Negative (Negative); Blood Urine 3+ (Negative); Color Urine Light yellow (Yellow); Glucose Urine Negative (Negative); Ketones Urine Negative (Negative); Specific Gravity Urine 1.025 (1.000-1.030)
[2025-02-08 08:47] LABS: Leukocyte Esterase Urine 3+ (Negative); Nitrite Urine Negative (Negative); Protein Urine 4+ (Negative); Urobilinogen Urine 0.2 (0.2-1.0)
[2025-02-08 16:59] LABS: Bacteria Urine Many; RBC Urine >100 (0-2); Squamous Epithelial Cell Urine Moderate (None-Few); WBC Urine >100 (0-5)
== END 2025-02-08 09:45 | disposition home or self-care (01) ==
PROVIDERS: Emergency Provider Internal Medicine; PCP Family Medicine
DX: N39.0 Urinary tract infection, site not specified (principal); T83.091A Other mechanical complication of indwelling urethral catheter, initial encounter
CPT/HCPCS: 81001; 81003; 87086; 99283

== ENCOUNTER 2025-02-09 13:05 | Emergency (ER) | payer MEDICARE, SELFPAY ==
--- OUTSIDE RECORDS SUMMARY | 2025-02-09 13:08 | XMS_ITS | Data Portability ---
Author Organization [facility], [facility] Address [address] [place] [address] Care Team Providers Care Director Digital Sales Name Role Phone SILVIA CLARKE Primary Care Provider Assessment Encounter Date Assessment Date Assessment LastModified by Organization Details LastModified Time 12/10/2024 12/10/2024 89 year male with recent episode of retention [email or web address] Not available 12/10/2024 14:01:16 Plan of Treatment [...] urodynam ic testing, complex (PROC) 2024 025 [email or web address] Not available 02/04/2025 17:23:18 Surgeries None recorded . Imaging None recorded . Medication Orders Macrobid 100 mg capsule [id number] [id number], [address], [address], 02/08/2025 16:22:55 Macrobid 100 mg capsule [id number] [id number], [address], [address], 02/08/2025 16:22:55 Patient TargetsNo targets recorded. Patient Instructions Encounter Date Encounter Id Patient Instructions Last Modified By Organization Details Last Modified Time 12/10/2024 [id number] urodynamic studies: about these tests curtis Not available 12/10/2024 14:01:28 Retention: Patient failed [...] now due to multiple catheter insertions today [email or web address] Not available 12/10/2024 14:10:46 01/12/2025 [id number] Patient is an 89-year-old male presents today for follow-up of urinary retention. Patient with chronic urinary retention and difficult Francisco catheter placement during last visit. He is due for catheter exchange today, successfully changed over a wire. He was previously recommended urodynamics. He currently lives in [place] and only travels back to [place] sparingly. At this time, they would like to hold off on urodynamics but will need catheter exchanged over a wire with urologist monthly. Will arrange for this. [email or web address] Not available 01/12/2025 11:55:56 Reason for Referral None Reported. Problems Name Problem SNOMED Code Status Onset Date Resolution Date Notes Provider Name and Address Organization Details Recorded Time John hematuria 083898228 Active 2016 R31.0 : Gross hematuria - Notes:Due to BPH 90g vascular gland. 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 Not Available [facility] 0 01:59:21 Problem Notes None recorded. Procedures Surgical History Date Name Laterality Status Provider Name and Address Organization Details Recorded Time 01/13/20 25 COMPLEX VISIT completed GONZALO MALIK [address] [facility],[address], [place], [address], [facility] 01/12/2025 11:54:45 01/13/20 25 Urethral Catheter Change completed SHARI ABURTO, PAC [address] [facility],[address], [place], [address], [facility] 01/12/2025 11:54:29 01/13/20 25 Past Data Reviewed completed SHARI ABURTO, PAC [address] [facility],[address], [place], [address], [facility] 01/12/2025 11:54:51 12/11/19 25 CystoscopyMale completed SAURABH Bates [address] [facility],[address], [place], [address], [facility] 12/10/2024 14:01:03 12/11/19 25 Fill and Pull/Voiding Trial/TOV completed Chantel Fountain [facility] 12/10/2024 13:03:38 Hernia repair w/mesh completed Not Available Health Note 02/08/2025 16:22:53 Imaging Results None recorded. Procedure Notes None recorded. Medical Equipment None Reported. Allergies Allergen ID Allergen Name Allergen Category Reaction Reaction Severity Criticality Documentation Date Start Date Code Code System Note Provider Name and Address Organization Details Recorded Time [id number] ketoconaz ole medicatio n rash Not available Not available 12/10/20242010 6135 RxNorm infla mmati on Chantel Александр [facility] 5 10:55:56 449080 latex environme nt,medica tion rash Not available Not available 12/10/20242006 59903 91 RxNorm Patie nt state s he has a sever e latex aller gy (not anaph ylaxi s). Olivier er patie nt had post- op compl icati ons at [facility] due to sever e skin react ion after latex conta ining ortiz ges were appli ed. [facility] 10:[facility]09 036725 Product containin g penicilli n (product) medicatio n itching Not available Not available 12/10/20242006 96765 8001 SNOMED pric kly skin Chantel jones [facility] 10:56:14 690509 povidone- iodine medicatio n hives Not available Not available 12/10/20242004 8611 RxNorm Other react ion(s ): Swell ing huge welt from prep of skin on back Chantel jones [facility] 5 10:56:18 477560 Substance with sulfonami de structure and antibacte rial mechanism of action (substanc e) medicatio n Not available Not available Not available 12/10/20242006 14619 8003 SNOMED unrec ogniz ed react ion (text : *Unkn own, code: [id number]) (from exter nal sourc e) Chantel jones [facility] 10:56:22 Medications Name Sig Start Date Stop Date Status Note LastModified by Organization Details LastModified Time triamcinolo ne acetonide 0.1 % topical cream Apply topically to affected area(s) two times daily.* active Not Available Not Available No t Available Macrobid 100 mg capsule Take 1 capsule, twice daily, starting 3 days prior to urodynami c testing 2024 active HN: Patient reports no longer taking Not Available Not Available Not Available levothyroxi ne 88 mcg tablet TAKE ONE TABLET BY MOUTH ONE TIME DAILY IN THE MORNING BEFORE BREAKFAST active Not Available Not Available No t Available ciprofloxac in 500mg 2/day active Not Available Not Available No t Available Vitals None Recorded Social History Question Answer Notes LastModified by Organizat ion Details LastModified Time Tobacco Smoking Status Never Smoker Not Available Health Note 02/08/2025 16:22:53 Do You Have An Advance Directive? Yes [email or web address] Information not available 02/08/2025 What Is Your Level Of Caffeine Consumption? Occasional [email or web address] Information not available 02/08/2025 How Much Tobacco Do You Chew? None [email or web address] Information not available 02/08/2025 Do You Have A Medical Power Of Dispatcher Clerk? No [email or web address] Information not available 02/08/2025 What Was The Date Of Your Most Recent Tobacco Screening? 02/10/2025 [email or web address] Information not available 02/08/2025 Have You Ever Been Counseled For Unhealthy Alcohol Use? No Information not available 12/10/2024 What Is Your Relationship Status? Domestic Partner [email or web address] Information not available 02/08/2025 Are You Sexually Active? No [email or web address] Information not available 02/08/2025 Has Tobacco Cessation Counseling Been Provided? No [email or web address] Information not available 12/10/2024 How Many Days In The Past Year Have You Consumed 5 Or More Drinks? 20 [email or web address] Information no t available 02/08/2025 Sex: Unknown Functional Status Question Answer Note LastModified by Organizat ion Details LastModified Time Do you use any illicit or recreational drugs? No [email or web address] Information not available 02/08/2025 Do you or have you ever used any other forms of tobacco or nicotine? No [email or web address] Information not available 12/10/2024 What is your level of alcohol consumption? NONE [email or web address] Information not available 02/08/2025 Do you or have you ever used smokeless tobacco? Never used smokeless tobacco [email or web address] Information not available 02/08/2025 Do you or have you ever used e-cigarettes or vape? Never used electronic cigarettes [email or web address] Information not available 02/08/2025 Mental Status None recorded. Family History Relationship Description Onset Age of this Age Resolved Age Notes LastModified by Organization Details LastModified Time Unspecified Relation Family history of diabetes mellitus [email or web address] Not available 2024 11:03:48 Medical History Condition Response High Blood Pressure N Kidney Stones Y Depression N Sexually Transmitted Infection N Cancer N Bleeding Disorder N Lung Disease N GERD/Acid Reflux N High Cholesterol N Diabetes N Heart Disease N Immunizations Vaccine Type Date Status Note Provider Nam e and Address Organization Details Recorded Time Td (adult), 2 Lf tetanus toxoid, preservative free, adsorbed 6 completed Not Available [facility] 01/12/2025 11:18:30 Influenza, split virus, trivalent, preservative 3 completed Not Available [facility] 01/12/2025 11:18:30 Influenza, split virus, trivalent, preservative 4 completed Not Available [facility] 01/12/2025 11:18:30 Novel [id number], all formulations 0 completed Not Available [facility] 01/12/2025 11:18:30 Influenza, split virus, trivalent, PF 1 completed Not Available [facility] 01/12/2025 11:18:30 Influenza, split virus, trivalent, preservative 2 completed Not Available [facility] 01/12/2025 11:18:30 Tdap 3 completed Not Available [facility] 01/12/2025 11:18:30 zoster live 3 completed Not Available [facility] 01/12/2025 11:18:30 Influenza, high-dose, trivalent, PF 4 completed Not Available [facility] 01/12/2025 11:18:30 Td (adult), 5 Lf tetanus toxoid, preservative free, adsorbed 7 completed Not Available [facility] 01/12/2025 11:18:30 pneumococcal polysaccharide PPV23 6 completed Not Available [facility] 01/12/2025 11:18:30 Influenza, high-dose, trivalent, PF 7 completed Not Available [facility] 01/12/2025 11:18:30 zoster recombinant 8 completed Not Available [facility] 01/12/2025 11:18:30 Pneumococcal conjugate PCV 13 8 completed Not Available [facility] 01/12/2025 11:18:30 zoster recombinant 8 completed Not Available [facility] 01/12/2025 11:18:30 Influenza, high-dose, trivalent, PF 8 completed Not Available [facility] 01/12/2025 11:18:30 Influenza, adjuvanted, trivalent, PF 9 completed Not Available [facility] 01/12/2025 11:18:30 Influenza, high-dose, quadrivalent, PF 0 completed Not Available [facility] 01/12/2025 11:18:30 COVID-19, mRNA, LNP-S, PF, 30 mcg/0.3 mL dose 1 completed Not Available [facility] 01/12/2025 11:18:30 COVID-19, mRNA, LNP-S, PF, 30 mcg/0.3 mL dose 1 completed Not Available [facility] 01/12/2025 11:18:30 Influenza, high-dose, quadrivalent, PF 1 completed Not Available [facility] 01/12/2025 11:18:30 COVID-19, mRNA, LNP-S, PF, 30 mcg/0.3 mL dose 1 completed Not Available [facility] 01/12/2025 11:18:30 COVID-19, mRNA, LNP-S, PF, 30 mcg/0.3 mL dose, zhanna-sucrose 2 completed Not Available [facility] 01/12/2025 11:18:30 COVID-19, mRNA, LNP-S, bivalent, PF, 30 mcg/0.3 mL dose 2 completed Not Available [facility] 01/12/2025 11:18:30 Influenza, high-dose, quadrivalent, PF 2 completed Not Available [facility] 01/12/2025 11:18:30 COVID-19, mRNA, LNP-S, PF, 50 mcg/0.5 mL 3 completed Not Available [facility] 01/12/2025 11:18:30 Influenza, adjuvanted, quadrivalent, PF 3 completed Not Available [facility] 01/12/2025 11:18:30 COVID-19, mRNA, LNP-S, PF, 50 mcg/0.5 mL 4 completed Not Available [facility] 01/12/2025 11:18:30 COVID-19, mRNA, LNP-S, PF, 50 mcg/0.5 mL 4 completed [facility] 01/12/[facility]25 11:18:30 Influenza, adjuvanted, trivalent, PF 4 completed Not Available [facility] 01/12/2025 11:18:30 COVID-19, mRNA, LNP-S, PF, 50 mcg/0.5 mL 5 completed Not Available [facility] 01/12/2025 11:18:30 SARS-COV-2 (COVID-19) vaccine, UNSPECIFIED 5 completed Not Available Health Note 02/08/2025 16:22:56 zoster live 3 completed Not Available Health Note 02/08/2025 16:22:56 influenza, unspecified formulation 4 completed Not Available Health Note 02/08/2025 16:22:56 Past Encounters Encounter ID Performer Location Encounter Start Date Encounter Closed Date Diagnosis/Indication Diagnosis SNOMED-CT Code Diagnosis ICD10 Code Diagnosis Note [id number] SAURABH See [facility] [address] [place] [address],[address] [place] [address] 12/10/2024 10:53:11 12/17/2024 16:38:56 Retention of urine [id number] R33.9 [id number] GONZALO MALIK [facility] [address] [place] [address],[address] [place] [address] 01/12/2025 11:15:06 01/12/2025 12:54:13 Retention of urine 708499405 R33.9 Health Concerns Section Related Observation LastModified by Organization Detai ls LastModified Time None Recorded Concern Status LastModified by Organization Details LastModified Time None Recorded Advance Directives Directive Y: Payers Insurance Date Sequence Insurance Name Policy Number Policy Jacinto Covered Member ID Jacinto Member ID Guarantor Name 02/05/2025 1 [place]ICARE [place]: [employer] Giovanny Olivares [id number] Giovanny Olivares Notes Date Note Type [...] failing to void at home SAURABH Bates [address] [place] [address],[address], [place], [address], [facility] 12/10/2024 14:10:57 01/12/2025 text/html Patient is an 89-year-old male presents today for follow-up of urinary retention. Patient with recently failed voiding trials and difficult catheter placement that required cystoscopy and placement over guidewire. He has been tolerating the Francisco catheter well without issues. Presents today for catheter exchange. He has previously been recommended urodynamics however is unsure if he would like to proceed with this as he travels from [place] back to here intermittently. SHARI ABURTO, GONZALO [address] [facility],[address], [place], [address], [facility] 01/12/2025 11:56:09
--- OUTSIDE RECORDS SUMMARY | 2025-02-09 13:09 | XMS_ITS | Continuity of Care Document ---
Author Organization [facility] , [facility] Address [address] [place] [facility] [address] [place] [address] Care Team Providers Care Dial Screw Assembler Name Role Phone TRICIASILVIA ABDALLA Primary Care Provider Assessment No assessment recorded. Plan of Treatment [...] By Organization Details Last Modified Time 01/12/2025 [id number] Patient is an 89-year-old male presents today for follow-up of urinary retention. Patient with chronic urinary retention and difficult Echevarria catheter placement during last visit. He is due for catheter exchange today, successfully changed over a wire. He was previously recommended urodynamics. He currently lives in [place] and only travels back to [place] sparingly. At this time, they would like to hold off on urodynamics but will need catheter exchanged over a wire with urologist monthly. Will arrange for this. [email or web address] Not available 01/12/2025 11:55:56 Reason for Referral None Reported. Problems Name Problem SNOMED Code Status Onset Date Resolution Date Notes Provider Name and Address Organization Details Recorded Time John hematuria 070292777 Active 2016 R31.0 : Gross hematuria - Notes:Due to BPH 90g vascular gland. 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 Not Available [facility] 0 01:59:21 Problem Notes None recorded. Procedures Surgical History Date Name Laterality Status Provider Name and Address Organization Details Recorded Time 01/13/20 25 COMPLEX VISIT completed GONZALO MALIK [address] [place] [address],[address], [address] [place] [address], [facility] 01/12/2025 11:54:45 01/13/20 25 Urethral Catheter Change completed GONZALO MALIK [address] [place] [address],[address], [address] [place] [address], [facility] 01/12/2025 11:54:29 01/13/20 25 Past Data Reviewed completed GONZALO MALIK [address] [place] [address] 01/12/2025 11:54:51 12/11/19 25 CystoscopyMale completed SAURABH Bates [address] [place] [address], [address] [place] [address] 12/10/2024 14:01:03 12/11/19 25 Fill and Pull/Voiding Trial/TOV completed [facility] 12/10/2024 13:03:38 Hernia repair w/mesh completed Not Available Health Note 02/08/2025 16:22:53 Imaging Results None recorded. Procedure Notes None recorded. Medical Equipment None Reported. Allergies Allergen ID Allergen Name Allergen Category Reaction Reaction Severity Criticality Documentation Date Start Date Code Code System Note Provider Name and Address Organization Details Recorded Time 233636 ketoconaz ole medicatio n rash Not available Not available 12/10/20242010 6135 RxNorm infla mmati on [facility] 5 10:55:56 919313 latex environme nt,medica tion rash Not available Not available 12/10/20242006 38172 91 RxNorm Patie nt state s he has a sever e latex aller gy (not anaph ylaxi s). Howev er, christiana nt had post- op compl icati ons at [facility] due to sever e skin react ion after latex conta ining ortiz ges were appli ed. Chantel jones [facility] 10:56:09 870188 Product containin g penicilli n (product) medicatio n itching Not available Not available 12/10/20242006 17142 8001 SNOMED pric kly skin Chantel jones [facility] 10:56:14 909075 povidone- iodine medicatio n hives Not available Not available 12/10/20242004 8611 RxNorm Other react ion(s ): Swell ing huge welt from prep of skin on back Chantel jones [facility] 10:56:18 154513 Substance with sulfonami de structure and antibacte rial mechanism of action (substanc e) medicatio n Not available Not available Not available 12/10/20242006 00180 8003 SNOMED unrec ogniz ed react ion (text : *Unkn own, code: 75311 [id number]) (from exter nal sourc e) Chantel jones [facility] 10:56:22 Medications Name Sig [...] Do You Have A Medical Power Of Ruby On Rails Engineer? No [email or web address] Information not available 02/08/2025 What [...] Has Tobacco Cessation Counseling Been Provided? No [email or web address] Information not available 12/10/2024 How Many Days In The Past Year Have You Consumed 5 Or More Drinks? 20 [email or web address] Information no t available 02/08/2025 Sex: Unknown Functional Status Question Answer Note LastModified by [employer] Details LastModified Time Do you use any illicit or recreational drugs? No [email or web address] Information not available 02/08/2025 Do you or have you ever used any other forms of tobacco or nicotine? No [email or web address] Information not available 12/10/2024 What is your [...] Unspecified Relation Family history of diabetes mellitus [email or web address] Not available 2024 11:03:48 Medical History Condition Response Sexually Transmitted Infection N Diabetes N Bleeding Disorder N High Blood Pressure N Kidney Stones Y Cancer N Depression N Lung Disease N High Cholesterol N GERD/Acid Reflux N Heart Disease N Immunizations Vaccine Type Date Status Note Provider Nam e and Address Organization Details Recorded Time Td (adult), 2 Lf tetanus toxoid, preservative free, adsorbed 6 completed Not Available [facility] 01/12/2025 11:18:30 Influenza, split virus, trivalent, preservative 3 completed Not Available [facility] 01/12/2025 11:18:30 Influenza, split virus, trivalent, preservative 4 completed Not Available [facility] 01/12/2025 11:18:30 Novel [id number], all formulations 0 completed Not Available [facility] 01/12/2025 11:18:30 Influenza, split virus, trivalent, PF 1 completed Not Available [facility] 01/12/2025 11:18:30 Influenza, split virus, trivalent, preservative 2 completed Not Available [facility] 01/12/2025 11:18:30 Tdap 3 completed Not Available [facility] 01/12/2025 11:18:30 zoster live 3 completed Not Available [facility] 01/12/2025 11:18:30 Influenza, high-dose, trivalent, PF 4 completed Not Available [facility] 01/12/2025 11:18:30 Td (adult), 5 Lf tetanus toxoid, preservative free, adsorbed 7 completed Not Available [facility] 01/12/2025 11:18:30 pneumococcal polysaccharide PPV23 6 completed Not Available [facility] 01/12/2025 11:18:30 Influenza, high-dose, trivalent, PF 7 completed Not Available [facility] 01/12/2025 11:18:30 zoster recombinant 8 completed Not Available [facility] 01/12/2025 11:18:30 Pneumococcal conjugate PCV 13 8 completed Not Available [facility] 01/12/2025 11:18:30 zoster recombinant 8 completed Not Available [facility] 01/12/2025 11:18:30 Influenza, high-dose, trivalent, PF 8 completed Not Available [facility] 01/12/2025 11:18:30 Influenza, adjuvanted, trivalent, PF 9 completed Not Available [facility] 01/12/2025 11:18:30 Influenza, high-dose, quadrivalent, PF 0 completed Not Available [facility] 01/12/2025 11:18:30 COVID-19, mRNA, LNP-S, PF, 30 mcg/0.3 mL dose 1 completed Not Available [facility] 01/12/2025 11:18:30 COVID-19, mRNA, LNP-S, PF, 30 mcg/0.3 mL dose 1 completed Not Available [facility] 01/12/2025 11:18:30 Influenza, high-dose, quadrivalent, PF 1 completed Not Available [facility] 01/12/2025 11:18:30 COVID-19, mRNA, LNP-S, PF, 30 mcg/0.3 mL dose 1 completed Not Available [facility] 01/12/2025 11:18:30 COVID-19, mRNA, LNP-S, PF, 30 mcg/0.3 mL dose, zhanna-sucrose 2 completed Not Available [facility] 01/12/2025 11:18:30 COVID-19, mRNA, LNP-S, bivalent, PF, 30 mcg/0.3 mL dose 2 completed Not Available [facility] 01/12/2025 11:18:30 Influenza, high-dose, quadrivalent, PF 2 completed Not Available [facility] 01/12/2025 11:18:30 COVID-19, mRNA, LNP-S, PF, 50 mcg/0.5 mL 3 completed Not Available [facility] 01/12/2025 11:18:30 Influenza, adjuvanted, quadrivalent, PF 3 completed Not Available [facility] 01/12/2025 11:18:30 COVID-19, mRNA, LNP-S, PF, 50 mcg/0.5 mL 4 completed Not Available [facility] 01/12/2025 11:18:30 COVID-19, mRNA, LNP-S, PF, 50 mcg/0.5 mL 4 completed Not Available [facility] 01/12/2025 11:18:30 Influenza, adjuvanted, trivalent, PF 4 completed Not Available [facility] 01/12/2025 11:18:30 COVID-19, mRNA, LNP-S, PF, 50 mcg/0.5 mL 5 completed Not Available [facility] 01/12/2025 11:18:30 SARS-COV-2 (COVID-19) vaccine, UNSPECIFIED 5 completed Not Available Health Note 02/08/2025 16:22:56 zoster live 3 completed Not Available Health Note 02/08/2025 16:22:56 influenza, unspecified formulation 4 completed Not Available Health Note 02/08/2025 16:22:56 Past Encounters Encounter ID Performer Location Encounter Start Date Encounter Closed Date Diagnosis/Indication Diagnosis SNOMED-CT Code Diagnosis ICD10 Code Diagnosis Note [id number] GONZALO MALIK [place] [address] [facility],[address] [address] 01/12/2025 11:15:06 01/12/2025 12:54:13 Retention of urine [id number] R33.9 Health Concerns Section Related Observation LastModified by Organization Detai ls LastModified Time None Recorded Concern Status LastModified by Organization Details LastModified Time None Recorded Payers Encounter Date Sequence Insurance Name Policy Number Policy Jacinto Covered Member ID Jacinto Member ID Guarantor Name 01/12/2025 1 MEDICARE [place]: [employer] Giovanny Olivares [id number] Giovanny Olivares Notes Date Note Type [...] proceed with this as he travels from [place] back to here intermittently. SHARI ABURTO, PAC [address] [facility],[address], [place], [address], [facility] 01/12/2025 11:56:09
--- OUTSIDE RECORDS SUMMARY | 2025-02-09 13:09 | XMS_ITS | Clinical Summary ---
Author Organization [facility] Address [address] [address] Phone Care Team Providers Care Legal Investigator Name Role Phone Peggy Gregg MD Primary Care Provider Allergies Active Allergy Reactions Criticality Noted Date Comments Povidone Iodine Hives,Swelling High 05/05/2005 huge welt from prep of skin on back Environmental Rhinitis Low 05/05/2005 hayfever like systems Food Rhinitis Low 05/05/2005 throat sore from many fruits, and vegetables FRESH allergic also to most nuts Most okay if cooked Ketoconazole Other Low 01/16/2013 [facility] Record Scanned 08/24/14 Latex RASH Medium [...] (Age 89) Arterioscleros is Mother (Age 96) [place], breast can cer, arthritis Social History Tobacco [...] on file 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
[2025-02-09 13:29] VITALS: BP 132/74; PULSE 84; RESP 24; O2SAT 98; BMI 21.7
--- NOTE | 2025-02-09 13:42 | ED.MALEGU ---
HPI - Male Genitourinary General Time Seen by Provider: 13:42 Date Seen: 02/09/25 Chief complaint: Urogenital Problems, Male Stated complaint: Can't urinate Has catheter, feels the need to go Time Seen by Provider: 02/09/25 13:06 Source: patient and RN notes reviewed Mode of arrival: ambulatory Limitations: no limitations History of Present Illness HPI Narrative: This 89-year-old male with in dwelling catheter for the last couple of months is coming in with complaint of no drainage of his catheter into the bag, increasing pelvic and abdominal discomfort. He has no fevers. On November 20 was in the ER and required a Francisco to be placed, had 1100 mL drain. He had had a negative urinalysis in the clinic prior. He returned to the ER on November 28 with recurrent urinary retention, had a trial of catheter removal after the catheter had been in place for 1 week. Unfortunately could not urinate and had to have the Francisco placed again. 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 He does have Urology involved. He states his last catheter replacement required over wire placement by Urology. He is scheduled to go tomorrow to have this done again. He notes he is on Cipro, actually was in yesterday to the ER as well for lack of drainage in the catheter bag. Urinalysis had 4+ protein, 3+ blood, 3+ leukocyte esterase, nitrate negative. Had greater than 100 red cells, greater than 100 white cells, moderate squamous epithelial cells and many bacteria. He was started on Cipro yesterday. He notes no fevers. His abdominal discomfort has increased as there is been minimal drainage into the catheter bag. Related Data Home Medications ?Medication ?Instructions ?Recorded ?Confirmed levothyroxine 88 mcg tablet 88 mcg PO QAM 11/20/24 11/28/24 Allergies Allergy/AdvReac Type Severity Reaction Status Date / Time adhesive Allergy Unknown Verified 11/28/24 21:03 ketoconazole Allergy Unknown Verified 11/28/24 21:03 latex Allergy Unknown Verified 11/28/24 21:03 Penicillins Allergy Unknown Verified 11/28/24 21:03 povidone-iodine (From Allergy Unknown Verified 11/28/24 21:03 Betadine) Sulfa (Sulfonamide Allergy Unknown Verified 11/28/24 21:03 Antibiotics) Review of Systems Narrative: As per HPI. PFSH PFSH Social History Smoking Status: Never smoker How often do you have a drink containing alcohol: never AUDIT-C Alcohol total score: 0 Non-prescribed substance use: denies use service: No Exam Const: Vital Signs, click to edit/add: Vital Signs - 24 hr 02/09/25 13:29 Pulse Rate [Pulse Oximeter] 84 Respiratory Rate 24 Blood Pressure [Ri ght Upper Arm] 132/74 Pulse Oximetry 98 Oxygen Delivery Me thod Room Air Patient is alert, interactive, no apparent distress. CV regular rate and rhythm, do not hear any murmur. Speaking easily on room air, speech is normal. Abdomen is soft, nontender, nondistended, no organomegaly. Bladder scan is showing over 350 mL. He has some clear looking urine in the catheter tubing but really none in the bag. Documenting provider has reviewed patient's vital signs: yes Course Course ED Course: Nursing staff initially had approach me about changing is fully. Discuss with them that he sounds like he might be a difficult change out and requiring wire localization for catheter changing. Thus, we will attempt flushing this catheter to see if we can start flow again. If we are unable to flush and create urinary flow, will need to talk to [place] [facility]. Reevaluation(s) Time of Reevaluation #1: 14:26 Reevaluation #1: Patient is feeling much better; his catheter is draining after nursing flushed the francisco. He has probably close to 500 mL of darker looking clear urine. He is afebrile, abdominal discomfort has resolved. Did discuss the importance of completing his Cipro while we await urine culture. His urology appointment is tomorrow morning which they will keep. If he has recurrent obstructive symptoms in the interim, can return here. They are aware that we will be unable to change this catheter but we certainly can attempt flushing to remove obstruction. Vital Signs Vital signs: Initial Vital Signs Pulse Rate 84 02/09/25 13:29 Respiratory Rate 24 02/09/25 13:29 Blood Pressure 132/74 02/09/25 13:29 Blood Pressure Mean 93 02/09/25 13:29 Blood Pressure Position Sitting 02/09/25 13:29 Pulse Oximetry 98 02/09/25 13:29 Oxygen Delivery Method Room Air 02/09/25 13:29 Vital Signs Pulse Rate 84 02/09/25 13:29 Respiratory Rate 24 02/09/25 13:29 Blood Pressure 132/74 02/09/25 13:29 Pulse Oximetry 98 02/09/25 13:29 Oxygen Delivery Method Room Air 02/09/25 13:29 Pulse Rate 84 02/09/25 13:29 Respiratory Rate 24 02/09/25 13:29 Blood Pressure 132/74 02/09/25 13:29 Pulse Oximetry 98 02/09/25 13:29 Oxygen Delivery Method Room Air 02/09/25 13:29 Discharge Plan Discharge Clinical Impression: Complication, blocked Francisco catheter Qualifiers: Encounter type: initial encounter Qualified Code(s): T83.091A - Other mechanical complication of indwelling urethral catheter, initial encounter Patient Disposition: Home, Self-Care Condition: Stable Instructions: Francisco Catheter Placement and Care (ED) Additional Instructions: Keep urology appointment as scheduled tomorrow morning. Do recommend taking the Cipro until urine culture is known. If you develop obstruction of the Francisco catheter again, have fevers or increasing abdominal pain, do recommend re-evaluation. Activity Level: Activity as Tolerated Prescriptions: No Action levothyroxine 88 mcg tablet 88 mcg PO QAM Follow Up/Referrals: Peggy Gregg MD [Primary Care Provider, Family Practice] Stand Alone Forms: MyHealth Info Instructions
== END 2025-02-09 14:44 | disposition home or self-care (01) ==
PROVIDERS: Emergency Provider Family Medicine; PCP Family Medicine
DX: T83.091A Other mechanical complication of indwelling urethral catheter, initial encounter (principal)
CPT/HCPCS: 51798; 99282; 99283

== ENCOUNTER 2025-06-17 14:26 | Emergency (ER) | payer MEDICARE, SELFPAY ==
--- OUTSIDE RECORDS SUMMARY | 2025-04-20 07:39 | XMS_ITS | Continuity of Care Document ---
Author Organization [facility] Address [address] [address] [place] [address] Phone Care Team Providers Care Soda Fountain Manager Name Role Phone No Information Unavailable Unavailable Advance Directives Directive Yes / No Effective Date File Name No Information Encounters Encounter Description Practice Location Reason(s) For Visit Diagnoses Date Provider Providers Copied on Encounter [facility], [address] [address], [place], [place], [id number], tel:[phone] No Information No Information Referring Provider: Dilan Moreno MD, [address] [place] [address], [address]. tel:[phone] Family History Family Member Type Diagnosis Age At Onset No Information Payers Payer name Insurance type Covered republican ID Authoriza tion(s) No Information Social History Type Description Quantity Date Captured Comments Sex Male Smoking Status No Information Chief Complaint And Reason For Visit No Information Reason For Referral Reason For Referral No Information History Of Present Illness Encounter Date Complaint History Of Prese nt Illness No Information Functional Status Date Functional Assessmen t No Information Instructions Date Instruction Additional Infor mation No Information Assessments Type Assessment Date No Information Patient Care Teams Name Effective Dates (start - stop) Status Members No Information
--- OUTSIDE RECORDS SUMMARY | 2025-04-20 07:39 | XMS_ITS | Continuity of Care Document ---
Author Organization [facility] Address [address] [address] [place] [address] Phone Care Team Providers Care Coreroom Foundry Laborer Name Role Phone No Information Unavailable Unavailable Advance Directives Directive Yes / No Effective Date File Name No Information Encounters Encounter Description Practice Location Reason(s) For Visit Diagnoses Date Provider Providers Copied on Encounter [facility], [address] [address], [place], [place], [id number], tel:[phone] No Information No Information Referring Provider: Dilan Moreno MD, [address] [place] [address], [address]. tel:[phone] Family History Family Member Type Diagnosis Age At Onset No Information Payers Payer name Insurance type Covered alliance party ID Authoriza tion(s) No Information Social History [...]
--- OUTSIDE RECORDS SUMMARY | 2025-06-17 14:29 | XMS_ITS | Data Portability ---
Author Organization [facility] Address [address] [place] [address] Care Team Providers Care Casing Splitter Name Role Phone SILVIA CLARKE Primary Care Provider Assessment Encounter Date Assessment Date Assessment LastModified by Organization Details LastModified Time 06/17/2025 06/17/2025 89 year male here for newly diagnosed CAP and urinary retention retention [email or web address] Not available 06/17/2025 10:49:49 Plan of Treatment Reminders Order Date Submit Date Provider Last Modified By Organization Details Last Modified Time Details Appointments ESTABLISH ED 20 2024 09:00A M SAURABH Bartholomew Not available Not available Not available LAB BLOOD DRAW & INJECTION 2024 01:50P M [facility] Not available Not available Not available LAB BLOOD DRAW & INJECTION 2025 11:40A [facility] Not available Not available Not available LAB BLOOD DRAW & INJECTION 2025 11:20A [facility] Not available Not available Not available ADVANCED PROSTATE CA 2025 11:20A M SAURABH Bartholomew Not available Not available Not available Lab genetic analysis summary panel 2024 025 [facility], [address], [address], [place], [address], 06/09/2025 15:31:39 DNA analysis discrete sequence variation panel 2024 025 [facility], [address], [address], [place], [address], 04/16/2025 17:40:00 CMP, serum or plasma 2024 025 [facility], [address], [address], [place], [address], 04/17/2025 09:26:38 liquid biopsy, prostate, urine 2024 025 [facility], [address], [address], [place], [address], 04/16/2025 17:40:16 Referral authoriza tion request 2024 025 alejandro Not available 05/27/2025 12:14:05 Procedures None recorded. Surgeries None recorded. Imaging MRI, lumbar spine, w/o contrast 2024 025 alejandro [facility], [address], [address], [place], [address], 06/17/2025 07:52:26 Medication Orders Xgeva 120 mg/1.7 mL (70 mg/mL) subcutane ous solution 2024 025 [facility], [address] [place] [address], [address], 04/16/2025 17:38:52 Nubeqa 300 mg tablet 2024 025 [id number] [facility], [address] [place] [address], [address], 06/13/2025 17:14:19 Calcium 500 + D 500 mg-10 mcg (400 unit) tablet 2024 025 [id number], [address], [address], 04/16/2025 17:38:52 Eligard 45 mg (6 month) subcutane ous syringe 2024 025 [facility][id number], [address], [address], 03/26/2025 13:54:31 Patient TargetsNo targets recorded. Patient Instructions Encounter Date Encounter Id Patient Instructions Last Modified By Organization Details Last Modified Time 04/16/2025 [id number] I spent >60 minutes on this clinical encounter on the day of service including preparing for the visit by reviewing data, evaluating and managing the patient and documenting the encounter in the medical record [email or web address] Not available 04/17/2025 10:49:50 06/17/2025 [id number] Urinary retention: -Patient passed voiding trial this morning. -Instructed patient to stay well-hydrated and avoid constipation. -If unable to urinate by the end of the day, instructed patient to return to the clinic. If after clinic hours, instructed to go to urgent care or the emergency department. -Monitor for symptoms of urinary retention including abdominal pain/pressure or distension, inability to urinate for 4-6 hours, dribbling or only urinating drops, or feeling of incomplete emptying. Prostate cancer: - PSA and testosterone checks every 3 months. - Continue Nubeqa and Eligard - Due for Eligard injection 10/08 - Monthly Xgeva injections along with CMP [email or web address] Not available 06/17/2025 14:35:43 Reason for Referral Authorization Request for Ma lignant neoplasm of prostate Referring Physician: Celia Moreno, Urology, Encounter Date: 04/16/2025 Results Created Date Observation Date Name Description Value Unit Range Abnormal Flag Note LastModifiedBy Organization Detail LastModifiedTime 03/03/2003/03/2025 PSA, TOTAL -ROCH E PSA, total 227.00 NG/mL 0.00-4 .00 high This resul t is repor katie using a new metho dolog y for Total PSA. Previ ous resul ts using the old metho d are not direc tly ambika rable . The expec katie varia tion is small ( appro ximat leanne 1% diffe rence https ://pu bmed. ncbi. nlm.n ih.go v/346 80942 /), but pleas e consi carolyn a new basel ine for the patie nt. This lab resul t is being provi ded to you and your provi carolyn at the same time in compl iance with the Centu ry Cures Act. Your provi carolyn may not have had time to revie w and make recom menda tions based on the resul t. Pleparminder e allow up to one week for provi carolyn revie w. Not Available [facility] [address], [place], [address], 03/03/2025 17:51:22 03/17/20 25 03/17/2025 PROST ATE BIOPS Y left lateral base ADENOC ARCINO MA abnormal Not Available [facility] [address], [place], [address], 03/19/2025 15:01:36 03/17/20 25 03/17/2025 PROST ATE BIOPS Y left base ADENOC ARCINO MA abnormal Not Available [facility] [address], [place], [address], 03/19/2025 15:01:36 03/17/20 25 03/17/2025 PROST ATE BIOPS Y left lateral mid ADENOC ARCINO MA abnormal Not Available [facility] [address], [place], [address], 03/19/2025 15:01:36 03/17/20 25 03/17/2025 PROST ATE BIOPS Y left mid ADENOC ARCINO MA abnormal Not Available [facility] [address], [place], [address], 03/19/2025 15:01:36 03/17/20 25 03/17/2025 PROST ATE BIOPS Y left lateral apex ADENOC ARCINO MA abnormal Not Available [facility] [address], [place], [address], 03/19/2025 15:01:36 03/17/20 25 03/17/2025 PROST ATE BIOPS Y left apex ADENOC ARCINO MA abnormal Not Available [facility] [address], [place], [address], 03/19/2025 15:01:36 03/17/20 25 03/17/2025 PROST ATE BIOPS Y R lat base ADENOC ARCINO MA abnormal Not Available [facility] [address], [place], [address], 03/19/2025 15:01:36 03/17/20 25 03/17/2025 PROST ATE BIOPS Y RT lat mid ADENOC ARCINO MA abnormal Not Available [facility] [address], [place], [address], 03/19/2025 15:01:36 03/17/20 25 03/17/2025 PROST ATE BIOPS Y RT lat apex ADENOC ARCINO MA abnormal Not Available [facility] [address], [place], [address], 03/19/2025 15:01:36 04/16/20 25 04/16/2025 COMPR EHENS TOÑO METAB OLIC PANEL ALT-olympus 83.0 IU/L 10.0-4 0.0 high Not Available [facility] [address] [facility] [address], [place], [address], 04/17/2025 09:26:38 04/16/20 25 04/16/2025 COMPR EHENS TOÑO METAB OLIC PANEL AST-olympus 54.3 IU/L 10.0-4 2.0 high Not Available [facility] [address] [facility] [address], [place], [address], 04/17/2025 09:26:38 04/16/20 25 04/16/2025 COMPR EHENS TOÑO METAB OLIC PANEL ALP-olympus 122.0 [IU]/ L 24.0-1 06.0 high Pleas e note new refer ence range as of 2014 Not Available [facility] [address] [address], [place], [address], 04/17/2025 09:26:38 04/16/20 25 04/16/2025 COMPR EHENS TOÑO METAB OLIC PANEL albumin-olym pus 4.0 g/dL 3.5-5. 0 This lab resul t is being provi ded to you and your provi carolyn at the same time in [facility] with the [facility] ry Care Act of 2015. Your provi carolyn may not have had time to revie w and make recom menda tions based on the resul t. Pleas e allow up to one week for provi carolyn revie w. Not Available [facility] [address] [address], [place], [address], 04/17/2025 09:26:38 04/16/20 25 04/16/2025 COMPR EHENS TOÑO METAB OLIC PANEL T bilirubin-ol ympus 0.3 mg/dL 0.2-1. 0 Not Available [facility] [address] [address], [place], [address], 04/17/2025 09:26:38 04/16/2004/16/2025 COMPR EHENS TOÑO METAB OLIC PANEL D bilirubin-ol ympus 0.0 mg/dL 0.0-0. 2 Not Available [facility] [address], [place], [address], 04/17/2025 09:26:38 04/16/2004/16/2025 COMPR EHENS TOÑO METAB OLIC PANEL T protein-olym pus 7.1 g/dL 6.5-8. 1 This lab resul t is being provi ded to you and your provi carolyn at the same time in [facility] with the Centu ry Care Act 2015. Your provi carolyn may not have had time to revie w and make recom menda tions based on the resul t. Pleas e allow up to one week for provi carolyn revie w. Not Available [facility] [address] [address], [place], [address], 04/17/2025 09:26:38 04/16/20 25 04/16/2025 COMPR EHENS TOÑO METAB OLIC PANEL potassium 4.4 mmol/ L 3.6-5. 0 Not Available [facility] [address] [address], [place], [address], 04/17/2025 09:26:38 04/16/20 25 04/16/2025 COMPR EHENS TOÑO METAB OLIC PANEL Na 136.0 mmol/ L 135.0- 145.0 Corre latio n facto r paco purdy 2015. You may notic e a 1-2 mmol/ L incre ase in patie nt Na resul t. Not Available [facility] [address] [address], [place], [address], 04/17/2025 09:26:38 04/16/20 25 04/16/2025 COMPR EHENS TOÑO METAB OLIC PANEL chloride 100.0 mmol/ L 101.0- 111.0 low Not Available [facility] [address] [place] [address] [address], [place], [address], 04/17/2025 09:26:38 04/16/20 25 04/16/2025 COMPR EHENS TOÑO METAB OLIC PANEL CO2 30.0 mmol/ L 21.0-3 1.0 Not Available [facility] [address] [place] [address] [address], [place], [address], 04/17/2025 09:26:38 04/16/20 25 04/16/2025 COMPR EHENS TOÑO METAB OLIC PANEL aniongap 6.00 0.00-1 6.00 Not Available [facility] [address] [place] [address] [address], [place], [address], 04/17/2025 09:26:38 04/16/20 25 04/16/2025 COMPR EHENS TOÑO METAB OLIC PANEL glu 78.90 mg/dL 70.00- 105.00 Not Available [facility] [address] [address], [place], [address], 04/17/2025 09:26:38 04/16/20 25 04/16/2025 COMPR EHENS TOÑO METAB OLIC PANEL Ca 9.7 mg/dL 8.4-10 .2 Not Available [facility] [address] [facility] [address], [place], [address], 04/17/2025 09:26:38 04/16/20 25 04/16/2025 COMPR EHENS TOÑO METAB OLIC PANEL BUN 24.0 mg/dL 7.0-18 .0 high Not Available [facility] [address] [facility] [address], [place], [address], 04/17/2025 09:26:38 04/16/20 25 04/16/2025 COMPR EHENS TOÑO METAB OLIC PANEL BUN/creat 24.7 ratio 9.0-20 .0 high Not Available [facility] [address] [facility] [address], [place], [address], 04/17/2025 09:26:38 04/16/20 25 04/16/2025 COMPR EHENS TOÑO METAB OLIC PANEL creatinine 1.0 mg/dL 0.6-1. 3 Not Available [facility] [address] [facility] [address], [place], [address], 04/17/2025 09:26:38 04/16/20 25 04/16/2025 COMPR EHENS TOÑO METAB OLIC PANEL eGFR >60 mL/mi n_per _1.73 90-120 If Afric an Ameri can multi ply by 1.210 This lab resul t is being provi ded to you and your provi carolyn at the same time in compl iance with the 21st Centu ry Cures Act. Your provi carolyn may not have had time to revie w and make recom menda tions based on the resul t. Madhuri purdy allow up to one week for provi carolyn revie w. Not Available [facility] [address] [facility] [address], [place], [address], 04/17/2025 09:26:38 03/19/20 25 03/17/2025 US, prost ate No observ ation record ed. [email or web address] Not Available 03/19 11:13:16 03/26/20 25 03/26/2025 PET-C T, skull base to mid-t high scan Electr onical ly signed by DEJA streeter [facility] [address], [place], [address], 03/26/2025 18:20:02 03/30/20 25 03/30/[address], verte x to mid thigh , prost ate psma [place] Patien t Name: HUSSEIN ASENCIO ERG 14 Patien t : 936 Referr ing Physic damion: Deja Pandey i Exam Date: 025 Exam Descri ption: PET w CT, vertex to mid thigh, prosta te PSMA HISTOR Y: Prosta te cancer , initia l stagin g. PSA 227. TECHNI YAHAIRA FACTOR S: Images were acquir ed from the vertex of the skull to mid thighs 59 minute s post inject ion of 8.19 mCi F-18 flotuf olasta t (Poslu ma). Axial, cm l and sagitt al PET recons tructi ons with and withou t attenu ation correc tion were interp reted. Tiffany farrell g CT images were acquir ed and review ed alongs martha the PET images . The low dose unenha nced CT images were used for attenu ation correc tion and anatom ic correl ation only. Techno logist notes: Dose: 8.19 mCi F18 Poslum a via RAC IV Patizachary t voided prior to imagin g and was able to lay with arms up for durati on of the scan. Height : 5'11 Weight : 155# Gender : Male Uptake Time: 59 minsFO HUSSEIN MÉNDEZ 89 y/o MPET w CT, vertex to mid thigh, prosta te PSMA COMPAR ANA: None. FINDIN GS: PET Findin gs: Abnorm al tracer uptake throug hout majori ty of the left more than right prosta te with max SUV 38.0. Multip le areas of probab le extrac apsula r extens ion of tracer avid neopla sm, most promin ent along the left slurry plant operator ior mid to apex prosta te. Broad abutme nt of the anal canal with invasi on/ext ension into the anal canal a consid eratio n. Additi onal broad abutme nt of the urinar y bladde r, with urinar y bladde r involv ement not exclud ed. Multip le tracer avid bilate ral pelvic sidewa ll, iliac chain and presac ral/pe rirect al shen metast ases, for exampl e a right pelvic sidewa ll/int ernal iliac 17 mm lymph node with max SUV 29.6, right presac ral 9 mm lymph node with max SUV 18.3 and right it intern al iliac 12 mm lymph node with max SUV 33.8. Tracer avid left hilar 12 mm lymph node with max SUV 30.0, concer huma for additi onal shen metast asis. Tracer avid small 4 mm focus soft tissue along the left pulmon geo major fissur e with max SUV 2.9, possib ly a pleura l metast asis. Tiny tracer avid 5 mm nodule within the left lower lobe, either distal hilar shen metast asis versus pulmon geo metast asis (max SUV 6.1). Multip le tracer avid osseou s metast ases in the axial and append icular skelet on, which predom inantl y demons trate no measur able CT correl ate, howeve r with few that are sclero tic. For exampl e within the right anteri or 2nd rib spanni ng approx imatel y 4.9 cm with small amount of extrao sseous soft tissue extens ion (max SUV 59.8). Broad abutme nt of the pleura , with possib le involv ement. Additi onal exampl es includ e the L1 verteb ral body with max SUV 44.1. Mild compre ssion deform ity along the superi or endpla te, potent ially pathol ogic (age indete rminat e). Tracer distri bution is otherw ise physio logic. Non-PE T Findin gs: Cerebr al volume loss. Aortic calcif icatio ns. Cm ry calcif icatio ns. Heart size is normal . 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 Mild scatte red subseg mental atelec tasis. Bilate ral right more than left renal cortic al thinni ng. Extrar enal right renal pelvis . Coloni c divert iculos is. Postsu rgical change s of the anteri or abdomi nal wall. Degene rative change s of the spine. CONCLU MUKESH: 1. Abnorm al tracer uptake throug hout the left more than right prosta te with multip le areas of probab le extrac apsula r extens ion of tracer avid neopla sm, most promin ent along the left slurry plant operator ior mid to apex prosta te. Broad abutme nt of the anal canal with invasi on/inv olveme nt of the anal canal a consid eratio n. Additi onal broad abutme nt of the urinar y bladde r, with urinar y bladde r involv ement not exclud ed. 2. Multip le tracer avid bilate ral pelvic sidewa ll, iliac chain and presac ral/pe rirect al shen metast ases. 3. Tracer avid left hilar lymph node, concer huma for additi onal shen metast asis. 4. Tracer avid small 4 mm soft tissue focus along the left pulmon geo major fissur e, possib ly a pleura l metast asis. 5. Tiny tracer avid 5 mm nodule within the perihi lar left lower lobe of the lung, either distal hilar shen metast asis versus pulmon geo metast asis. 6. Multip le tracer avid osseou s metast ases in the axial and append icular skelet on, which predom inantl y demons trate no measur able CT correl ate, howeve r with few that are sclero tic. 7. Mild compre ssion deform ity along the superi or endpla te of L1, potent ially pathol ogic (age indete rminat e). Thank you for the opport unity to provid e your interp retati on. David dos santos MD A: MS 2024 9:10 AM EST apolcari [facility] [address], [place], [address], 04/02/2025 16:25:31 Result Notes Documentation Provider Name and Address Organization Details Recorded Time Pet-ct, Skull Base To Mid-thigh Scan : Electronically signed by CELIA Moreno MD [address] [place] [address],[address], [place], [address], [facility] 03/26/2025 18:20:02 Problems Name Problem SNOMED Code Status Onset Date Resolution Date Notes Provider Name and Address Organization Details Recorded Time John hematuria 937867901 Active 2016 R31.0 : Gross hematuria - Notes:Due to BPH 90g vascular gland. 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 Not Available [facility] 0 01:59:21 Problem Notes None recorded. Procedures Surgical History Date Name Laterality Status Provider Name and Address Organization Details Recorded Time 06/17/20 25 Fill and Pull/Voiding Trial/TOV completed Shelby Oneill [facility] 06/17/2025 10:09:08 06/17/20 25 Fill and Pull/Voiding Trial/TOV active Shelby Oneill [facility] 06/17/2025 09:44:50 05/21/20 25 Urethral Catheter Change completed Day Crane [facility] 05/21/2025 16:10:37 04/16/20 25 COMPLEX VISIT completed Celia Moreno MD [address] [place] [address],[address], [place], [address], [facility] 04/17/2025 10:49:41 04/16/20 25 Past Data Reviewed completed Celia Moreno MD [address] [place] [address],[address], [place], [address], [facility] 04/17/2025 10:43:18 04/16/20 25 Blood Draw/MASTER CARPENTER/PSA RESULTS completed Marimar Wing [facility] 04/16/2025 17:38:35 03/26/[address] Scan-Vertex to Mid Thigh completed Arminda Dickerson [facility] 03/26/2025 15:28:05 03/26/20 25 Eliedyd completed Marimar Wing [facility] 03/26/2025 13:53:45 03/17/20 25 Prostate Biopsy Procedure completed Celia Moreno MD [address] [facility],[address], [place], [address], [facility] 03/17/2025 14:43:45 03/17/20 25 Urethral Catheter Change completed Shannon Allen [facility] 03/17/2025 13:59:45 03/17/20 25 Past Data Reviewed completed Celia Moreno MD [address] [facility],[address], [place], [address], [facility] 03/17/2025 07:58:52 03/17/20 25 Tobramycin Injection completed Sarah Izquierdo [facility] 03/17/2025 13:19:54 03/03/20 25 Blood Draw/MASTER CARPENTER/PSA RESULTS completed Sarah Izquierdo [facility] 03/03/2025 15:08:58 02/18/20 25 Urodynamic Studies completed Natalee Beck MD [address] [facility],[address], [place], [address], [facility] 02/22/2025 11:16:17 02/18/20 25 Francisco Catheter Insertion completed JUAN ANGEL [address] [place] [address],[address], [place], [address], [facility] 02/17/2025 12:59:05 02/18/20 25 Urinalysis completed JUAN ANGEL [address] [place] [address],[address], [place], [address], [facility] 02/16/2025 14:58:08 02/11/20 25 Urethral Catheter Change completed SAURABH Bates [address] [facility],[address], [place], [address], [facility] 02/10/2025 13:59:55 01/13/20 25 COMPLEX VISIT completed GONZALO MALIK [address] [facility],[address], [place], [address], [facility] 01/12/2025 11:54:45 01/13/20 25 Urethral Catheter Change completed GONZALO MALIK [address] [facility],[address], [place], [address], [facility] 01/12/2025 11:54:29 01/13/20 25 Past Data Reviewed completed GONZALO MALIK [address] [facility],[address], [place], [address], [facility] 01/12/2025 11:54:51 12/11/19 25 CystoscopyMale completed SAURABH Bates [address] [facility],[address], [place], [address], [facility] 12/10/2024 14:01:03 12/11/19 25 Fill and Pull/Voiding Trial/TOV completed Chantel Fountain [facility] 12/10/2024 13:03:38 Hernia repair w/mesh completed Not Available Health Note 02/08/2025 16:22:53 Imaging Results None recorded. Procedure Notes None recorded. Medical Equipment None Reported. Allergies Allergen ID Allergen Name Allergen Category Reaction Reaction Severity Criticality Documentation Date Start Date Code Code System Note Provider Name and Address Organization Details Recorded Time 139936 ketoconaz ole medicatio n rash Not available Not available 12/10/20242010 6135 RxNorm infla mmati on Chantel Fountain [facility] 5 10:55:56 358059 latex environme nt,medica tion rash Not available Not available 12/10/20242006 72248 91 RxNorm Patie nt state s he has a sever e latex aller gy (not anaph ylaxi s). christiana Gomez had post- op compl icati ons at [place] due to sever e skin react ion after latex conta ining ortiz ges were appli ed. Chantel Fountain [facility] 5 10:56:09 897885 Product containin g penicilli n (product) medicatio n itching Not available Not available 12/10/20242006 77561 8001 SNOMED pric kly skin [facility] 10:56:14 486591 povidone- iodine medicatio n hives Not available Not available 12/10/20242004 8611 RxNorm Other react ion(s ): Swell ing huge welt from prep of skin on back [facility] 10:56:18 868416 Substance with sulfonami de structure and antibacte rial mechanism of action (substanc e) medicatio n Not available Not available Not available 12/10/20242006 15216 8003 SNOMED unrec ogniz ed react ion (text : *Unkn own, code: [id number]) (from exter nal sourc e) [facility] 10:56:22 158672 penicilli n G Not available rash Not available high 02/10/20252004 7980 RxNorm [facility] 11:38:12 Medications Name Sig Start Date Stop Date Status Note LastModified by Organization Details LastModified Time ciprofloxac in 500 mg tablet TAKE 1 TABLET BY MOUTH TWICE DAILY FOR 5 DAYS active HN: Patient reports no longer taking Not Available Not Available Not Available triamcinolo ne acetonide 0.1 % topical cream Apply topically to affected area(s) two times daily. active HN: Patient reports no longer taking Not Available Not Available Not Available levothyroxi ne 100 mcg tablet TAKE ONE TABLET BY MOUTH ONE TIME DAILY BEFORE BREAKFAST * active Not Available Not Available No t Available levothyroxi ne 88 mcg tablet TAKE ONE TABLET BY MOUTH ONE TIME DAILY IN THE MORNING BEFORE BREAKFAST * active Not Available Not Available No t Available tobramycin 40 mg/mL injection solution Take 80 mg by injection route. 2024 active Not Available Not Available Not Avai lable levofloxaci n 500 mg tablet Take 1 tablet, by mouth, 1 hour prior to your prostate biopsy 2024 active Not Available Not Available Not Avai lable nitrofurant oin monohydrate /macrocryst als 100 mg capsule TAKE 1 CAPSULE BY MOUTH EVERY 12 HOURS FOR 3 DAYS. active HN: Patient reports no longer taking Not Available Not Available Not Available Eligard 45 mg (6 month) subcutaneou s syringe Inject 1 syringe by subcutane ous route. 2024 active Not Available Not Available Not Avai lable ciprofloxac in 500mg 2/day active HN: Patient reports no longer taking Not Available Not Available Not Available Calcium 500 + D 500 mg-10 mcg (400 unit) tablet Take 1 tablet twice a day by oral route. 2024 active Not Available Not Available Not Avai lable Xgeva 120 mg/1.7 mL (70 mg/mL) subcutaneou s solution Inject 1.7 mL by subcutane ous route. 2024 active Not Available Not Available Not Avai lable Nubeqa 300 mg tablet Take 2 tablets twice a day by oral route. 2024 active Not Available Not Available Not Avai lable Posluma 296 MBq/mL to 5,846 MBq/mL intravenous solution Inject 8 mCi by intraveno us route. 2024 active Not Available Not Available Not Avai lable Vitals Date Recorded Body mass index (BMI) Body weight Body height Provider Name and Address Organization Details Last Updated DateTime 04/16/2025 17.9 kg/m2 31529.34095 56871 g 198.12 cm Not Available Health Note 04/16/2025 16:30:56 Date Recorded Body height Provider Name an d Address Organization Details Last Updated DateTime 05/21/2025 198.12 cm Day Crane [place] [facility] [place] [facility] 05/21/2025 15:24:29 Social History Question Answer Notes LastModified by Organizat ion Details LastModified Time Tobacco Smoking Status Never Smoker Not Available Health Note 04/14/2025 11:52:17 Do You Have An Advance Directive? Yes [email or web address] Information not available 02/08/2025 What Is Your Level Of Caffeine Consumption? None [email or web address] Information not available 04/14/2025 How Much Tobacco Do You Chew? None [email or web address] Information not available 04/14/2025 Do You Have A Medical Power Of Urologic Nurse? No [email or web address] Information not available 02/08/2025 What Was The Date Of Your Most Recent Tobacco Screening? 05/21/2025 [email or web address] Information not available 05/21/2025 Have You Ever Been Counseled For Unhealthy Alcohol Use? No [email or web address] Information not available 12/10/2024 What Is Your Relationship Status? Domestic Partner [email or web address] Information not available 04/14/2025 Are You Sexually Active? No [email or web address] Information not available 02/08/2025 Has Tobacco Cessation Counseling Been Provided? No [email or web address] Information not available 12/10/2024 How Many Days In The Past Year Have You Consumed 5 Or More Drinks? 0 [email or web address] Information no t available 04/14/2025 Sex: Unknown Functional Status Question Answer Note LastModified by Organizat ion Details LastModified Time Do you use any illicit or recreational drugs? No [email or web address] Information not available 04/14/2025 Do you or have you ever used any other forms of tobacco or nicotine? No [email or web address] Information not available 12/10/2024 What is your level of alcohol consumption? NONE [email or web address] Information not available 04/14/2025 Do you or have you ever used smokeless tobacco? Never used smokeless tobacco [email or web address] Information not available 04/14/2025 Do you or have you ever used e-cigarettes or vape? Never used electronic cigarettes [email or web address] Information not available 04/14/2025 Mental Status None recorded. Family History Relationship Description Onset Age of this Age Resolved Age Notes LastModified by Organization Details LastModified Time Unspecified Relation Family history of diabetes mellitus [email or web address] Not available 2024 11:03:48 Unspecified Relation Family history unknown [email or web address] Not available 2024 11:52:16 Medical History Condition Response High Blood Pressure [...] preservative free, adsorbed 6 completed Not Available [facility] 06/17/2025 09:53:47 Influenza, split virus, trivalent, preservative 3 completed Not Available [facility] 06/17/2025 09:53:47 Influenza, split virus, trivalent, preservative 4 completed Not Available [facility] 06/17/2025 09:53:47 Novel [id number], all formulations 0 completed Not Available [facility] 06/17/2025 09:53:47 Influenza, split virus, trivalent, PF 1 completed Not Available [facility] 06/17/2025 09:53:47 Influenza, split virus, trivalent, preservative 2 completed Not Available [facility] 06/17/2025 09:53:47 Tdap 3 completed Not Available [facility] 06/17/2025 09:53:47 zoster live 3 completed Not Available [facility] 06/17/2025 09:53:47 Influenza, high-dose, trivalent, PF 4 completed Not Available [facility] 06/17/2025 09:53:47 Td (adult), 5 Lf tetanus toxoid, preservative free, adsorbed 7 completed Not Available [facility] 06/17/2025 09:53:47 pneumococcal polysaccharide PPV23 6 completed Not Available [facility] 06/17/2025 09:53:47 Influenza, high-dose, trivalent, PF 7 completed Not Available [facility] 06/17/2025 09:53:47 zoster recombinant 8 completed Not Available [facility] 06/17/2025 09:53:47 Pneumococcal conjugate PCV 13 8 completed Not Available [facility] 06/17/2025 09:53:47 zoster recombinant 8 completed Not Available [facility] 06/17/2025 09:53:47 Influenza, high-dose, trivalent, PF 8 completed Not Available [facility] 06/17/2025 09:53:47 Influenza, adjuvanted, trivalent, PF 9 completed Not Available [facility] 06/17/2025 09:53:47 Influenza, high-dose, quadrivalent, PF 0 completed Not Available [facility] 06/17/2025 09:53:47 COVID-19, mRNA, LNP-S, PF, 30 mcg/0.3 mL dose 1 completed Not Available [facility] 06/17/2025 09:53:47 COVID-19, mRNA, LNP-S, PF, 30 mcg/0.3 mL dose 1 completed Not Available [facility] 06/17/2025 09:53:47 Influenza, high-dose, quadrivalent, PF 1 completed Not Available [facility] 06/17/2025 09:53:47 COVID-19, mRNA, LNP-S, PF, 30 mcg/0.3 mL dose 1 completed Not Available [facility] 06/17/2025 09:53:47 COVID-19, mRNA, LNP-S, PF, 30 mcg/0.3 mL dose, zhanna-sucrose 2 completed Not Available [facility] 06/17/2025 09:53:47 COVID-19, mRNA, LNP-S, bivalent, PF, 30 mcg/0.3 mL dose 2 completed Not Available [facility] 06/17/2025 09:53:47 Influenza, high-dose, quadrivalent, PF 2 completed Not Available [facility] 06/17/2025 09:53:47 COVID-19, mRNA, LNP-S, PF, 50 mcg/0.5 mL 3 completed Not Available [facility] 06/17/2025 09:53:47 Influenza, adjuvanted, quadrivalent, PF 3 completed Not Available [facility] 06/17/2025 09:53:47 COVID-19, mRNA, LNP-S, PF, 50 mcg/0.5 mL 4 completed Not Available [facility] 06/17/2025 09:53:47 COVID-19, mRNA, LNP-S, PF, 50 mcg/0.5 mL 4 completed Not Available [facility] 06/17/2025 09:53:47 Influenza, adjuvanted, trivalent, PF 4 completed Not Available [facility] 06/17/2025 09:53:47 COVID-19, mRNA, LNP-S, PF, 50 mcg/0.5 mL 5 completed Not Available [facility] 06/17/2025 09:53:47 SARS-COV-2 (COVID-19) vaccine, UNSPECIFIED 5 completed Not Available Health Note 02/08/2025 16:22:56 zoster live 3 completed Not Available Health Note 02/08/2025 16:22:56 influenza, unspecified formulation 4 completed Not Available Health Note 02/08/2025 16:22:56 SARS-COV-2 (COVID-19) vaccine, UNSPECIFIED 5 completed Not Available Health Note 04/14/2025 11:52:19 influenza, unspecified formulation 4 completed Not Available Health Note 04/14/2025 11:52:19 COVID-19, mRNA, LNP-S, PF, 10 mcg/0.2 mL 5 completed Not Available [facility] 06/17/2025 09:53:47 Influenza, high-dose, trivalent, PF 5 completed Not Available [facility] 06/17/2025 09:53:47 Past Encounters Encounter ID Performer Location Encounter Start Date Encounter Closed Date Diagnosis/Indication Diagnosis SNOMED-CT Code Diagnosis ICD10 Code Diagnosis IMO Codes Diagnosis Note [id number] SAURABH SeeWoshelly foley [address] [place] [phone] 0 12/10/2024 10:53:11 12/17/2024 16:38:56 Retention of urine 219339352 R33.9 37222 [id number] GONZALO MALIKWoo marianaury [address] [place] [address]837 0 01/12/2025 11:15:06 01/12/2025 12:54:13 Retention of urine 341599942 R33.9 57636 [id number] SAURABH SeeroTeresaWoo alaina [address] [place] [address]254[address]123 0 02/10/2025 11:35:07 02/18/2025 11:02:27 Retention of urine 245697495 R33.9 70369 [id number] Ally Robin aguilar, [place] [facility] [address] [facility] [place] [address] 02/17/2025 10:57:50 02/23/2025 16:18:13 Retention of urine 237255453 R33.9 [id number] Ally BronsonRuben aguilar, SAURABH [facility] [address] [place] [address],[facility] e [address] [place] [phone] 0 03/03/2025 14:17:14 03/10/2025 04:00:59 Prostate nodule 7745666414 54421 N40.2 59243 Retention of urine 52246 4002 R33.9 60775 [id number] MD Justin Lo [address] [place] [address] [place] [id number] 0 03/17/2025 13:17:55 03/17/2025 13:22:16 Prostate specific antigen above reference range 910881326 R97.20 [id number] MD Justin Lo [address] [place] [id number] 0 03/17/2025 13:18:18 03/23/2025 12:46:25 Prostate specific antigen above reference range 204977748 R97.20 [id number] MD Justin Lo [address] [place] [phone] 0 03/26/2025 13:50:54 03/26/2025 13:54:59 Malignant neoplasm of prostate 516946206 C61 [id number] MD Justin Lo [address] [place] [id number] 0 03/26/2025 14:07:40 03/30/2025 12:58:19 Malignant neoplasm of prostate 658538386 C61 [id number] Celia Polcari, MD [facility] [address] 04/16/2025 16:30:20 04/22/2025 12:37:23 Malignant neoplasm of prostate 667344900 C61 38035 89 y/o male with metastatic CAPWe will start with doublet therapy (nubeqa and eligard). 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 09038608 C77.5 0977650 Compressio n fracture of lumbar spine 951062723 S32.010D [id number] [facility] [address] 05/21/2025 15:21:42 05/25/2025 14:50:48 Malignant neoplasm of prostate 569644973 C61 83654 [id number] [facility] [phone] 06/17/2025 09:52:51 06/17/2025 14:35:55 Malignant neoplasm of prostate 874805266 C61 37810 Retention of urine 01935 4002 R33.9 29850 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 73307788 C79.51 959208 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 88016210 C77.5 7460599 Compressio n fracture of lumbar spine 827064141 S32.010D [id number] Health Concerns Section Related Observation LastModified by Organization Detai ls LastModified Time None Recorded Concern Status LastModified by Organization Details LastModified Time None Recorded Advance Directives Directive Y: Payers Insurance Date Sequence Insurance Name Policy Number Policy Jacinto Covered Member ID Jacinto Member ID Guarantor Name 03/25/2025 [employer] Hussein Olivares [id number] Hussein Villegasroopa 06/14/2025 1 [place]IC[place]: Together [employer] [facility] Hussein Olivares [id number] Hussein Surinder Olivares Notes Date Note Type Note Provider Name and Address Organization Details Recorded Time 03/26/2025 text/html Referring Provider AMINA Primary [id number] Prior Biopsy8.5.25 Initial vs Subsequent stagingInitial Patient [place] Height5'11'' [id number] Technologist Notes: AgentPosluma Dose8.19mCi Injection RouteIntravenous Injection [id number] Injection SiteRAC IV Injected Yeison Dickerson Scanned Yeison Dickerson Uptake [id number] Minutes/bed1.5 Arminda jones [place] - [facility] 03/26/2025 15:28:34 04/16/2025 text/html Chief complaint:Enlarged Prostate (BP 89 year male here for newly diagnosed CAP and urinary retention retention PSA on 03/03/25 was 227 Francisco placed in November. Catheter dependant since that timeHis initial francisco was placed via cystoscopy by Dr. Mueller and has had subsequent exchanges over a wire He has completed UDS on 02/17/25Impression:1. No SUI2. DO no leak3. coordinated EMG4. compliance intact5. unable to void on study, can not comment on detrusor function and if he is obstructed or not.detrusor is present as evidenced by overactivity on study.6. incomplete emptying -- retention noted. Prostate volume revealed large volume high grade adenoca of the prostatePSMA with widespread metsHe denies fatigue, wt loss, bone pain Celia Moreno MD [address] [facility],[address], [place], [address], [facility] - [facility] 04/17/2025 10:50:04 06/17/2025 text/html 89 year male here for newly diagnosed CAP and urinary retention retention Prostate cancer:PSA on 03/03/25 was 227 ng/mLProstate volume revealed large volume high grade adenoca of the prostatePSMA PET on 03/30/25 with widespread mets Current treatment strategy:- Eligard injection given 03/26/25- Nubeqa 300 mg tablets Bone health -- Xgeva (04/16/2025) and calcium supplementation He has noticed increased fatigue, hot flashes and joint discomfort since Initiating treatment Urinary retention:Francisco placed in November. Catheter dependant since that timeHis initial francisco was placed via cystoscopy by Dr. Mueller and has had subsequent exchanges over a wire He has completed UDS on 02/17/25Impression:1. No SUI2. DO no leak3. coordinated EMG4. compliance intact5. unable to void on study, can not comment on detrusor function and if he is obstructed or not.detrusor is present as evidenced by overactivity on study.6. incomplete emptying -- retention noted. He has passed a TOV today SAURABH Bates [address] [facility],[address], [place], [address], [facility] 06/17/2025 14:35:52
--- OUTSIDE RECORDS SUMMARY | 2025-06-17 14:29 | XMS_ITS | Continuity of Care Document ---
Author Organization [place] [facility] Address [address] [facility] [address] [place] [address] Care Team Providers Care Gasoline Finisher Name Role Phone SILVIA CLARKE Primary Care Provider [phone] Assessment Encounter Date Assessment Date Assessment LastModified by Organization Details LastModified Time 06/17/2025 06/17/2025 89 year male here for newly diagnosed CAP and urinary retention retention [email or web address] Not available 06/17/2025 10:49:49 Plan of Treatment [...] available Not available Not available Lab None recorded. Referral None recorded. Procedures None recorded. Surgeries None recorded. Imaging None recorded. Medication Orders None recorded. Patient TargetsNo targets recorded. Patient Instructions Encounter Date Encounter Id Patient Instructions Last Modified By Organization Details Last Modified Time 06/17/2025 [id number] Urinary retention: -Patient passed voiding trial this [...] - Monthly Xgeva injections along with CMP [email or web address] Not available 06/17/2025 14:35:43 Reason for Referral None Reported. Problems Name Problem SNOMED Code Status Onset Date Resolution Date Notes Provider Name and Address Organization Details Recorded Time John hematuria 840793102 Active 2016 R31.0 : Gross hematuria - Notes:Due to BPH 90g vascular gland. 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 Not Available [facility] 0 01:59:21 Problem Notes None recorded. Procedures Surgical History Date Name Laterality Status Provider Name and Address Organization Details Recorded Time 06/17/20 25 Fill and Pull/Voiding Trial/TOV completed Shelby Oneill [facility] 06/17/2025 10:09:08 06/17/20 25 Fill and Pull/Voiding Trial/TOV active Shelby Oneill [facility] 06/17/2025 09:44:50 05/21/20 25 Urethral Catheter Change completed Day Crane [facility] 05/21/2025 16:10:37 04/16/20 25 COMPLEX VISIT completed Dilan Moreno MD [address] [place] [address],[address], [address], [facility] 04/17/2025 10:49:41 04/16/20 25 Past Data Reviewed completed Dilan Moreno MD [address] [place] [address],[address], [address], [facility] 04/17/2025 10:43:18 04/16/20 25 Blood Draw/PATIENT NAVIGATOR/PSA RESULTS completed Marimar Wing [facility] 04/16/2025 17:38:35 03/26/[address] Scan-Vertex to Mid Thigh completed Arminda Toddson [facility] 03/26/2025 15:28:05 03/26/20 25 Mariemarcello completed Marimar Wing [facility] 03/26/2025 13:53:45 03/17/20 25 Prostate Biopsy Procedure completed Dilan Moreno MD [address] [place] [address],[address], [place], [address], [facility] 03/17/2025 14:43:45 03/17/20 25 Urethral Catheter Change completed Shannon Allen [facility] 03/17/2025 13:59:45 03/17/20 25 Past Data Reviewed completed Dilan Moreno MD [address], [place], [address], [facility] 03/17/2025 07:58:52 03/17/20 25 Tobramycin Injection completed Sarah Izquierdo [facility] 03/17/2025 13:19:54 03/03/20 25 Blood Draw/PATIENT NAVIGATOR/PSA RESULTS completed Sarah Izquierdo [facility] 03/03/2025 15:08:58 02/18/20 25 Urodynamic Studies completed Natalee Beck MD [address], [place], [address], [facility] 02/22/2025 11:16:17 02/18/20 25 Francisco Catheter Insertion completed JUAN ANGEL [address] [place] [address],[address], [place], [address], [facility] 02/17/2025 12:59:05 02/18/20 25 Urinalysis completed JUAN ANGEL [address] [place] [address],[address], [place], [address], [facility] 02/16/2025 14:58:08 02/11/20 25 Urethral Catheter Change completed SAURABH Bates [address], [place], [address], [facility] 02/10/2025 13:59:55 01/13/20 25 COMPLEX VISIT completed GONZALO MALIK [address], [place], [address], [facility] 01/12/2025 11:54:45 01/13/20 25 Urethral Catheter Change completed GONZALO MALIK [address], [place], [address], [facility] 01/12/2025 11:54:29 01/13/20 25 Past Data Reviewed completed GONZALO MALIK [address] [place] [address],[address], [place], [address], [facility] 01/12/2025 11:54:51 12/11/19 25 CystoscopyMale completed SAURABH Bates [address], [place], [address], [facility] 12/10/2024 14:01:03 12/11/19 25 Fill and Pull/Voiding Trial/TOV completed Chantel Fountain [facility] 12/10/2024 13:03:38 Hernia repair w/mesh completed Not Available Health Note 02/08/2025 16:22:53 Imaging Results None recorded. Procedure Notes None recorded. Medical Equipment None Reported. Allergies Allergen ID Allergen Name Allergen Category Reaction Reaction Severity Criticality Documentation Date Start Date Code Code System Note Provider Name and Address Organization Details Recorded Time 265573 ketoconaz ole medicatio n rash Not available Not available 12/10/20242010 6135 RxNorm infla mmati on Chantel jones [facility] 5 10:55:56 423793 latex environme nt,medica tion rash Not available Not available 12/10/20242006 03321 91 RxNorm Patigurwinder strauss state s he has a sever e latex aller gy (not anaph ylaxi s). christiana Gomez had post- op compl icati ons at [place] due to sever e skin react ion after latex conta ining ortiz ges were appli ed. Chnatel jones [facility] 5 10:56:09 326989 Product containin g penicilli n (product) medicatio n itching Not available Not available 12/10/20242006 35275 8001 SNOMED pric kly skin Chantel Fountain karen [facility] 5 10:56:14 210257 povidone- iodine medicatio n hives Not available Not available 12/10/20242004 8611 RxNorm Other react ion(s ): Swell ing huge welt from prep of skin on back Chantel Ayersroly karen [facility] 5 10:56:18 709048 Substance with sulfonami de structure and antibacte rial mechanism of action (substanc e) medicatio n Not available Not available Not available 12/10/20242006 39802 8003 SNOMED unrec ogniz ed react ion (text : *Unkn own, code: [id number]) (from exter nal sourc e) Chantelana maria jones [facility] 5 10:56:22 801069 penicilli n G Not available rash Not available high 02/10/20252004 7980 RxNorm Chantel jones [facility] 5 11:38:12 Medications Name Sig Start [...] Available Not Available Not Avai lable Vitals None Recorded Social History Question Answer [...] Do You Have A Medical Power Of Packer And Carry Out? No [email or web address] Information not available 02/08/2025 What Was The Date Of Your Most Recent Tobacco Screening? 05/21/2025 [email or web address] Information not available 05/21/2025 Have You Ever [...] other forms of tobacco or nicotine? No Information not available 12/10/2024 What is your [...] Unspecified Relation Family history of diabetes mellitus [email or web address] Not available 2024 11:03:48 Unspecified Relation Family history unknown [email or web address] Not available 2024 11:52:16 Medical History Condition Response Diabetes N Sexually Transmitted Infection N Bleeding Disorder N High Blood Pressure N Kidney Stones Y Cancer N Lung Disease N Depression N High Cholesterol N GERD/Acid Reflux N Heart Disease N Immunizations Vaccine Type Date Status Note Provider Nam e and Address Organization Details Recorded Time Td (adult), 2 Lf tetanus toxoid, preservative free, adsorbed 6 completed Not Available [facility] 06/17/2025 09:53:47 Influenza, split virus, trivalent, preservative 3 completed Not Available [facility] 06/17/2025 09:53:47 Influenza, split virus, trivalent, preservative 4 completed Not Available [facility] 06/17/2025 09:53:47 Novel [id number], all formulations 0 completed Not Available [facility] 06/17/2025 09:53:47 Influenza, split virus, trivalent, PF 1 completed Not Available [facility] 06/17/2025 09:53:47 Influenza, split virus, trivalent, preservative 2 completed Not Available [facility] 06/17/2025 09:53:47 Tdap 3 completed Not Available [facility] 06/17/2025 09:53:47 zoster live 3 completed Not Available [facility] 06/17/2025 09:53:47 Influenza, high-dose, trivalent, PF 4 completed Not Available [facility] 06/17/2025 09:53:47 Td (adult), 5 Lf tetanus toxoid, preservative free, adsorbed 7 completed Not Available [facility] 06/17/2025 09:53:47 pneumococcal polysaccharide PPV23 6 completed Not Available [facility] 06/17/2025 09:53:47 Influenza, high-dose, trivalent, PF 7 completed Not Available [facility] 06/17/2025 09:53:47 zoster recombinant 8 completed Not Available [facility] 06/17/2025 09:53:47 Pneumococcal conjugate PCV 13 8 completed Not Available [facility] 06/17/2025 09:53:47 zoster recombinant 8 completed Not Available [facility] 06/17/2025 09:53:47 Influenza, high-dose, trivalent, PF 8 completed Not Available [facility] 06/17/2025 09:53:47 Influenza, adjuvanted, trivalent, PF 9 completed Not Available [facility] 06/17/2025 09:53:47 Influenza, high-dose, quadrivalent, PF 0 completed Not Available [facility] 06/17/2025 09:53:47 COVID-19, mRNA, LNP-S, PF, 30 mcg/0.3 mL dose 1 completed Not Available [facility] 06/17/2025 09:53:47 COVID-19, mRNA, LNP-S, PF, 30 mcg/0.3 mL dose 1 completed Not Available [facility] 06/17/2025 09:53:47 Influenza, high-dose, quadrivalent, PF 1 completed Not Available [facility] 06/17/2025 09:53:47 COVID-19, mRNA, LNP-S, PF, 30 mcg/0.3 mL dose 1 completed Not Available [facility] 06/17/2025 09:53:47 COVID-19, mRNA, LNP-S, PF, 30 mcg/0.3 mL dose, zhanna-sucrose 2 completed Not Available [facility] 06/17/2025 09:53:47 COVID-19, mRNA, LNP-S, bivalent, PF, 30 mcg/0.3 mL dose 2 completed Not Available [facility] 06/17/2025 09:53:47 Influenza, high-dose, quadrivalent, PF 2 completed Not Available [facility] 06/17/2025 09:53:47 COVID-19, mRNA, LNP-S, PF, 50 mcg/0.5 mL 3 completed Not Available [facility] 06/17/2025 09:53:47 Influenza, adjuvanted, quadrivalent, PF 3 completed Not Available [facility] 06/17/2025 09:53:47 COVID-19, mRNA, LNP-S, PF, 50 mcg/0.5 mL 4 completed Not Available [facility] 06/17/2025 09:53:47 COVID-19, mRNA, LNP-S, PF, 50 mcg/0.5 mL 4 completed Not Available [facility] 06/17/2025 09:53:47 Influenza, adjuvanted, trivalent, PF 4 completed Not Available [facility] 06/17/2025 09:53:47 COVID-19, mRNA, LNP-S, PF, 50 mcg/0.5 mL 5 completed Not Available [facility] 06/17/2025 09:53:47 SARS-COV-2 (COVID-19) vaccine, UNSPECIFIED 5 [...] 10 mcg/0.2 mL 5 completed Not Available [facility] 06/17/2025 09:53:47 Influenza, high-dose, trivalent, PF 5 completed Not Available [facility] 06/17/2025 09:53:47 Past Encounters Encounter ID Performer Location Encounter Start Date Encounter Closed Date Diagnosis/Indication Diagnosis SNOMED-CT Code Diagnosis ICD10 Code Diagnosis IMO Codes Diagnosis Note [id number] Dilan Moreno MD [facility] [address] [place] [address] 05/21/2025 15:21:42 05/25/2025 14:50:48 Malignant neoplasm of prostate 127166013 C61 12581 [id number] SAURABH See [facility] [address] [place] [phone] 06/17/2025 09:52:51 06/17/2025 14:35:55 Malignant neoplasm of prostate 455374729 C61 69135 Retention of urine 54211 4002 R33.9 08180 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 36501480 C79.51 488134 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 61918706 C77.5 5240682 Compressio n fracture of lumbar spine 976004406 S32.010D [id number] Health Concerns Section Related Observation LastModified by Organization Detai ls LastModified Time None Recorded Concern Status LastModified by Organization Details LastModified Time None Recorded Payers Encounter Date Sequence Insurance Name Policy Number Policy Jacinto Covered Member ID Jacinto Member ID Guarantor Name 06/17/2025 1 [place]ARE [place]: [employer] Giovanny Olivares [id number] Giovannymelba Olivares Notes Date Note Type Note Provider Name and Address Organization Details Recorded Time 06/17/2025 text/html 89 year male here for [...] passed a TOV today SAURABH Bates [address], [place], [address], [place] [facility] 06/17/2025 14:35:52
--- OUTSIDE RECORDS SUMMARY | 2025-06-17 14:29 | XMS_ITS | Clinical Summary ---
Author Organization [employer] [facility] Address [address] [place] [address] Care Team Providers Care Tight Cooper Name Role Phone Leslie Diaz Unavailable [phone] Clinic, [place] Primary Care Provider [phone] Allergies Active Allergy Reactions Criticality Noted Date Comments Povidone-Iodine Hives 05/05/2005 Other reaction(s): Swelling huge welt from prep of skin on back Homeopathic Products Ketoconazole Rash 04/13/2011 inflammation Latex Rash 12/03/2006 Patient states he has a severe latex allergy (not anaphylaxis). However, patient had post-op complications at [facility] due to severe skin reaction after latex [...] in liquid then take by mouth. 0 01/18/20 Active loratadine (CLARITIN) 10 mg tablet Take 10 mg by mouth once daily. Active triamcinolone, 55 mcg each actuation, nasal (NASACORT AQ) 55 mcg nasal spray Inhale 2 Sprays in both nostrils once daily. Active triamcinolone 0.1 % creamIndications :Dermatitis Apply topically to affected area(s) two times daily. 80 g 11/21/19 25 Active leuprolide acetate (6 month) (Eligard (6 month)) 45 mg subcutaneous syringe Inject 1 syringe by subcutaneous route. 03/26/20 25 Active levothyroxine (SYNTHROID) 100 mcg tabletIndication s:Hypothyroidism , unspecified type Take 1 Tablet (100 mcg) by mouth before breakfast. 90 Tablet 3 06/03/20 25 Active levothyroxine (SYNTHROID) 88 mcg tabletIndication s:Hypothyroidism , unspecified type Take 1 Tablet (88 mcg) by mouth before breakfast. 90 Tablet 3 06/25/20 24 025 Discontin ued(*Medi cation adjustmen t) Active Problems Problem Noted Date Diagnosed Date [...] Encounters Date Type Department Care Team Description 06/01/2025 12:35 PM CDT Office Visit [facility] [address] [place] [address] Peggy Gregg MD Perspiration (Night sweats/Hot flashes Bel;ieved to be from medication Eligard); Fatigue 06/01/2025 Travel 03/26/2025 Orders Only [facility] Scanner 1 scan: (1-Ord) [place] [facility], ELIGARD INJECTION, 03/26/2025 03/17/2025 Orders Only [facility] Scanner 1 scan: (1-Ord) [place], TRUS BIOPSY, 03/17/2025 03/17/2025 Orders Only [facility] Scanner 1 scan: (1-Ord) [place], TOBRAMYCIN INJECTION, 03/17/2025 from Last 3 Months Immunizations Immunization Administration Dates Next Due COVID-19 VACCINE SPIKEVAX (M ODERNA 50MCG/0.5ML) 12YO+ PFS 06/03/2024,11/22/2023,06/12/2023 COVID-19 vaccine (Moderna 100mcg/0.5mL) PF, MDV 01/09/2025,08/13/2024 COVID-19 vaccine ([employer]Bio NTech 30mcg/0.3mL) 12YO+ BIVALENT PF, MDV 05/04/2022 COVID-19 vaccine ([employer] NTech 30mcg/0.3mL) 12YO+ SYEDA-SUCROSE PF, MDV 11/23/2021 COVID-19 vaccine ([employer] NTech 30mcg/0.3mL) PF, MDV 05/14/2021,10/12/2020,09/21/2020 Influenza A (H1N1), Inactivated 08/24/2009 Influenza Virus, Unspecified 04/25/2019,05/27/20 14,06/05/2011 Influenza, High-dose Inactivated 05/19/2025,05/13 Influenza, High-dose Quadriv alent Inactivated 06/02/2022,05/14/2021,06/04/2020 Influenza, [...] Arthritis Mother rheumatoid Other Mother age 96, [place] , breast ca, arthritis Anesthesia Malignant Hyperthermia [...] on file Legal Sex Male 6:07 AM [employer] Gender Identity Not on file Sexual Orientation Not on file Occupation Industry Job Start Date Job End Date retired Not on file Not on file Not on file Obstetrics History Last Filed Vital Signs Vital Sign Reading Time Taken Comments Blood Pressure 144/73 06/01/2025 12:40 PM CDT Pulse 82 06/01/2025 12:40 PM CDT Temperature 36.6 C (97.9 F) 05/16/2023 11:05 AM CDT Respiratory Rate 12 02/19/2020 8:38 AM CDT Oxygen Saturation 97% 06/01/2025 12:40 PM CDT Inhaled Oxygen Concentration - - Weight 80.6 kg (177 lb 9.6 oz) 06/01/2025 12:40 PM CDT Height 177.8 cm (5' 10) 07/16/2024 10:28 AM [employer] Body Mass Index 25.48 07/16/2024 10:28 AM [employer] Plan of Treatment Upcoming Encounters Date Type Department Care Team (Late st Contact Info) Description 07/20/2025 11:30 AM [employer] Orders Only [facility] [address] [place] [address] Lab, [facility] Maintenance Due Date Last [...] 07/16/2025 07/16/2024, 06/25/2024, 02/02/2022, Additional history exists Pneumococcal series for age 50+ Completed 01/03/2018, 10/11/2005 Zoster (shingles) series for age 50+ Completed 03/20/2018, 12/31/2017, 03/20/2013 Influenza Vaccine Completed 05/19/2025, , 06/12/2023, Additional history exists Hepatitis B series for 19+ Aged Out N o longer eligible based on patient's age to complete this topic Medical Devices Implanted Type Area Reverse Unit Operator Device Identifier Shelf Expiration Date Model / Serial / Lot Stent Uret [id number] Contour - [id number] Implanted:Qty: 1 on 06/29/2016 by Colin Zhao MD at [facility] Right: Ureter [facility] [id number] / / [id number] Stent Uret [id number] Contour - [id number] Implanted:Qty: 1 on 09/12/2017 by Tripp Howard MD at [facility] Right: Ureter [facility] U[facility] 06/26/2020 [id number]# / / [id number] Procedures Procedure Name Priority Date/Time Associated Diagnosis Comments HEMOGLOBIN Routine 06/01/2025 1:36 PM CDT Mild cognitive impairment COMP METABOLIC PANEL Routine 06/01/2025 1:36 PM CDT Hyperlipidemia, unspecified hyperlipidemia type LIPID PANEL W REFLEX MEASURED LDL Routine 06/01/2025 1:36 PM CDT Hyperlipidemia, unspecified hyperlipidemia type TSH Routine 06/01/2025 1:36 PM CDT Hypothyroidism, unspecified type VITAMIN B12 Routine 06/01/2025 1:36 PM CDT Mild cognitive impairment SCAN-OPERATIVE/PROC EDURE REPORT 03/26/2025 12:00 AM CDT SCAN-OPERATIVE/PROC EDURE REPORT 03/17/2025 12:00 AM CDT SCAN-OPERATIVE/PROC EDURE REPORT 03/17/2025 12:00 AM CDT from Last 3 Months Results * (ABNORMAL) LIPID PANEL W REFLEX MEASURED LDL (06/01/2025 1:36 PM CDT) CHOLESTEROL, TOTAL 249(H) <200 mg/dL 06/02/2025 3:41 AM CDT [facility] TRIGLYCERIDES 145 <150 mg/dL 06/02/2025 3:41 AM CDT [facility] HDL CHOLESTEROL 51 > OR = 40 mg/dL 06/02/2025 3:41 AM CDT [facility] NON HDL CHOLESTEROL 198(H) <130 mg/dL (calc) 06/02/2025 3:41 AM CDT [facility] Comment: For patients with diabetes plus 1 major ASCVD risk factor, treating to a non-HDL-C goal of <100 mg/dL (LDL-C of <70 mg/dL) is considered a therapeutic option. CHOL/HDLC RATIO 4.9 <5.0 (calc) 06/02/2025 3:41 AM CDT [facility] LDL-CHOLESTEROL 169(H) mg/dL (calc) 06/02/2025 3:41 AM CDT [facility] Comment: Reference range: <100 Desirable range <100 mg/dL for primary prevention; <70 mg/dL for patients with CHD or diabetic patients with > or = 2 CHD risk factors. LDL-C is now calculated using the Nikhil calculation, which is a validated novel method providing better accuracy than the Friedewald equation in the estimation of LDL-C. Thomas HURTADO et al. SAMANTHA. 2013;310(19): 4585-8949 (http://education.Ubitricity.Amarin/faq/MXA117) Blood BLOOD SPECIMEN / Unknown [facility] / Unknown 06/01/2025 1:36 PM CDT 06/01/2025 1:36 PM CDT Peggy Gregg MD CHEMISTRY Final R esult [facility] [address] [place] [address], * (ABNORMAL) TSH (06/01/2025 1:36 PM CDT) [facility] TSH 7.96(H) 0.40 - 4.50 mIU/L 06/02/2025 6:42 AM CDT [facility] Blood BLOOD SPECIMEN / Unknown [facility] / Unknown 06/01/2025 1:36 PM CDT 06/01/2025 1:36 PM CDT Peggy Gregg MD CHEMISTRY Final R esult Performing Organization Address [facility] de Phone Number [facility] [address] [address], [place] [phone] * HEMOGLOBIN (06/01/2025 1:36 PM CDT) HEMOGLOBIN 13.7 13.2 - 17.1 g/dL 06/02/2025 2:44 AM CDT [facility] MCV 95.4 80.0 - 100.0 fL 06/02/2025 2:44 AM CDT [facility] Blood BLOOD SPECIMEN / Unknown [facility] / Unknown 06/01/2025 1:36 PM CDT 06/01/2025 1:36 PM CDT us Peggy Gregg MD HEMATOLOGY Final R esult Performing Organization Address [facility] de Phone Number [facility] [address] [address], [place] [phone] * VITAMIN B12 (06/01/2025 1:36 PM CDT) Pathologist [facility] VITAMIN B12 579 200 - 1100 pg/mL 06/02/2025 6:42 AM CDT [facility] Blood BLOOD SPECIMEN / Unknown [facility] / Unknown 06/01/2025 1:36 PM CDT 06/01/2025 1:36 PM CDT us Peggy Gregg MD CHEMISTRY Final R esult Performing Organization Address [facility] de Phone Number [facility] [address] [address], [place] [phone] * (ABNORMAL) COMP METABOLIC PANEL (06/01/2025 1:36 PM CDT) SODIUM 139 135 - 146 mmol/L 06/02/2025 3:41 AM CDT [facility] POTASSIUM 4.9 3.5 - 5.3 mmol/L 06/02/2025 3:41 AM CDT [facility] CHLORIDE 102 98 - 110 mmol/L 06/02/2025 3:41 AM CDT [facility] CARBON DIOXIDE 30 20 - 32 mmol/L 06/02/2025 3:41 AM CDT [facility] GLUCOSE 80 65 - 99 mg/dL 06/02/2025 3:41 AM CDT [facility] Comment: Fasting reference interval CALCIUM 10.0 8.6 - 10.3 mg/dL 06/02/2025 3:41 AM CDT [facility] CREATININE 1.23(H) 0.70 - 1.22 mg/dL 06/02/2025 3:41 AM CDT [facility] BUN/CREATININE RATIO 22 6 - 22 (calc) 06/02/2025 3:41 AM CDT [facility] EGFR 56(L) > OR = 60 mL/min/1. 73m2 06/02/2025 3:41 AM CDT [facility] ALBUMIN 3.9 3.6 - 5.1 g/dL 06/02/2025 3:41 AM CDT [facility] PROTEIN, TOTAL 7.7 6.1 - 8.1 g/dL 06/02/2025 3:41 AM CDT [facility] BILIRUBIN, TOTAL 0.5 0.2 - 1.2 mg/dL 06/02/2025 3:41 AM CDT [facility] ALKALINE PHOSPHATASE 155(H) 35 - 144 U/L 06/02/2025 3:41 AM CDT [facility] ALT 19 9 - 46 U/L 06/02/2025 3:41 AM CDT [facility] AST 24 10 - 35 U/L 06/02/2025 3:41 AM CDT [facility] UREA NITROGEN (BUN) 27(H) 7 - 25 mg/dL 06/02/2025 3:41 AM CDT [facility] GLOBULIN 3.8(H) 1.9 - 3.7 g/dL (calc) 06/02/2025 3:41 AM CDT [facility] ALBUMIN/GLOBULIN RATIO 1.0 1.0 - 2.5 (calc) 06/02/2025 3:41 AM CDT [facility] Blood BLOOD SPECIMEN / Unknown [facility] / Unknown 06/01/2025 1:36 PM CDT 06/01/2025 1:36 PM CDT us Peggy Gregg MD CHEMISTRY Final R esult [facility] [address] [place] [address], [place] [phone] * SCAN-OPERATIVE/PROCEDURE REPORT (03/26/2025 12:00 AM CDT) us Scanner OTHER Final Result * SCAN-OPERATIVE/PROCEDURE REPORT (03/17/2025 12:00 AM CDT) us Scanner OTHER Final Result * SCAN-OPERATIVE/PROCEDURE REPORT (03/17/2025 12:00 AM CDT) us Scanner OTHER Final Result from Last 3 Months Insurance MEDICARE PB ONLY MEDICARE PART B HB ONLY MEDICARE PART A HB ONLY Advance Directives Documents on File Type Date Recorded Patient Ship Self Defense System Mk1 Operator Expl anation Healthcare Directive 09/23/2013 8:21 AM [...] 3:08 PM 06/30/2016 2:32 AM Care Teams Tight Cooper Relationship Specialty Start Date End Date [facility] [place] [address] [place] [address] PCP - General 05/07/25 Leslie Diaz [place] [address] Audiology 10/05/15
[2025-06-17 14:30] VITALS: BP 194/101; PULSE 99; RESP 18; TEMP 36.6; O2SAT 98
--- OUTSIDE RECORDS SUMMARY | 2025-06-17 14:30 | XMS_ITS | Continuity of Care Document ---
Author Organization [facility] , [facility] Address [address] [place] [address] [address] [place] [address] Care Team Providers Care Electrostatic Powder Coating Technician Name Role Phone SILVIA CLARKE Primary Care Provider [phone] Assessment No assessment recorded. Plan of Treatment [...] None recorded. Patient TargetsNo targets recorded. Patient InstructionsNo instructions recorded. Reason for Referral None Reported. Problems Name Problem SNOMED Code Status Onset Date Resolution Date Notes Provider Name and Address Organization Details Recorded Time John hematuria 439895453 Active 2016 R31.0 : Gross hematuria - Notes:Due to BPH 90g vascular gland. 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 Not Available [facility] 0 01:59:21 Problem Notes None recorded. Procedures Surgical History Date Name Laterality Status Provider Name and Address Organization Details Recorded Time 06/17/20 25 Fill and Pull/Voiding Trial/TOV completed Shelby Oneill [facility] 06/17/2025 10:09:08 06/17/20 25 Fill and Pull/Voiding Trial/TOV active Shelby Oneill [facility] 06/17/2025 09:44:50 05/21/20 25 Urethral Catheter Change completed Day Crane [facility] 05/21/2025 16:10:37 04/16/20 25 COMPLEX VISIT completed Dilan Moreno MD [address] [place] [address],[address], [place], [address], [facility] 04/17/2025 10:49:41 04/16/20 25 Past Data Reviewed completed Dilan Moreno MD [address] [place] [address],[address], [place], [address], [facility] 04/17/2025 10:43:18 04/16/20 25 Blood Draw/OUTDOOR EDUCATION TEACHER/PSA RESULTS completed Marimar Wing [facility] 04/16/2025 17:38:35 03/26/[address] Scan-Vertex to Mid Thigh completed Arminda Dickerson [facility] 03/26/2025 15:28:05 03/26/20 25 Elivictor hugo completed [facility] 03/26/2025 13:53:45 03/17/20 25 Prostate Biopsy Procedure completed Dilan Moreno MD [address] [place] [address],[address], [place], [address], [facility] 03/17/2025 14:43:45 03/17/20 25 Urethral Catheter Change completed Shannon Allen [facility] 03/17/2025 13:59:45 03/17/20 25 Past Data Reviewed completed Dilan Moreno MD [address] [place] [address],[address], [place], [address], [facility] 03/17/2025 07:58:52 03/17/20 25 Tobramycin Injection completed Sarah Izquierdo [facility] 03/17/2025 13:19:54 03/03/20 25 Blood Draw/OUTDOOR EDUCATION TEACHER/PSA RESULTS completed Sarah Felecia [facility] 03/03/2025 15:08:58 02/18/20 25 Urodynamic Studies completed Natalee Beck MD [address], [place], [address], [facility] 02/22/2025 11:16:17 02/18/20 25 Echevarria Catheter Insertion completed [facility] [address], [place], [address], [facility] 02/17/2025 12:59:05 02/18/20 25 Urinalysis completed JUAN ANGEL [address], [place], [address], [facility] 02/16/2025 14:58:08 02/11/20 25 Urethral Catheter Change completed SAURABH Bates [address], [place], [address], [facility] 02/10/2025 13:59:55 01/13/20 25 COMPLEX VISIT completed GONZALO MALIK [address], [place], [address], [facility] 01/12/2025 11:54:45 01/13/20 25 Urethral Catheter Change completed GONZALO MALIK [address], [place], [address], [facility] 01/12/2025 11:54:29 01/13/20 25 Past Data Reviewed completed GONZALO MALIK [address], [place], [address], [facility] 01/12/2025 11:54:51 12/11/19 25 CystoscopyMale completed SAURABH Bates [address], [place], [address], [facility] 12/10/2024 14:01:03 12/11/19 25 Fill and Pull/Voiding Trial/TOV completed Chantel Fountain [facility] 12/10/2024 13:03:38 Hernia repair w/mesh completed Not Available Health Note 02/08/2025 16:22:53 Imaging Results None recorded. Procedure Notes None recorded. Medical Equipment None Reported. Allergies Allergen ID Allergen Name Allergen Category Reaction Reaction Severity Criticality Documentation Date Start Date Code Code System Note Provider Name and Address Organization Details Recorded Time 617337 ketoconaz ole medicatio n rash Not available Not available 12/10/20242010 6135 RxNorm infla mmati [facility] 10:55:56 036039 latex environme nt,medica tion rash Not available Not available 12/10/20242006 63683 91 RxNorm Patie nt state s he has a sever e latex aller gy (not anaph ylaxi s). Olivier er, patie nt had post- op compl icati ons at [facility] due to sever e skin react ion after latex conta ining ortiz ges were appli ed. [facility] 10:56:09 952674 Product containin g penicilli n (product) medicatio n itching Not available Not available 12/10/20242006 01757 8001 SNOMED pric kly skin [facility] 10:56:14 313998 povidone- iodine medicatio n hives Not available Not available 12/10/20242004 8611 RxNorm Other react ion(s ): Swell ing huge welt from prep of skin on back [facility] 10:56:18 069500 Substance with sulfonami de structure and antibacte rial mechanism of action (substanc e) medicatio n Not available Not available Not available 12/10/20242006 52661 8003 SNOMED unrec ogniz ed react ion (text : *Unkn own, code: 22093 005) (from exter nal sourc e) [facility] 10:56:22 730087 penicilli n G Not available rash Not available high 02/10/20252004 7980 RxNorm Chantel Fountain [place], [place] - [place] [facility] 5 11:38:12 Medications Name Sig Start [...] Not Avai lable Vitals Date Recorded Body height Provider Name an d Address Organization Details Last Updated DateTime 05/21/2025 198.12 cm Day Crane [place] - [place] [facility] 05/21/2025 15:24:29 Social History Question [...] Do You Have A Medical Power Of Meal Cook? No [email or web address] Information not available 02/08/2025 What Was The Date Of Your Most Recent Tobacco Screening? 05/21/2025 [email or web address] Information not available 05/21/2025 Have You Ever Been Counseled For Unhealthy Alcohol Use? No [email or web address] Information not available 12/10/2024 What Is Your Relationship Status? Domestic Partner [email or web address] Information not available 04/14/2025 Are You Sexually Active? No [email or web address] Information not available 02/08/2025 Has Tobacco Cessation Counseling Been Provided? No [email or web address] Information not available 12/10/2024 How Many Days [...] other forms of tobacco or nicotine? No [email or web address] Information not available 12/10/2024 What is your [...] Unspecified Relation Family history of diabetes mellitus [email or web address] Not available 2024 11:03:48 Unspecified Relation Family history unknown [email or web address] Not available 2024 11:52:16 Medical History Condition Response Sexually Transmitted Infection [...] preservative free, adsorbed 6 completed Not Available [facility] 06/17/2025 09:53:47 Influenza, split virus, trivalent, preservative 3 completed Not Available [facility] 06/17/2025 09:53:47 Influenza, split virus, trivalent, preservative 4 completed Not Available [facility] 06/17/2025 09:53:47 Novel [id number], all formulations 0 completed Not Available [facility] 06/17/2025 09:53:47 Influenza, split virus, trivalent, PF 1 completed Not Available [facility] 06/17/2025 09:53:47 Influenza, split virus, trivalent, preservative 2 completed Not Available [facility] 06/17/2025 09:53:47 Tdap 3 completed Not Available [facility] 06/17/2025 09:53:47 zoster live 3 completed Not Available [facility] 06/17/2025 09:53:47 Influenza, high-dose, trivalent, PF 4 completed Not Available [facility] 06/17/2025 09:53:47 Td (adult), 5 Lf tetanus toxoid, preservative free, adsorbed 7 completed Not Available [facility] 06/17/2025 09:53:47 pneumococcal polysaccharide PPV23 6 completed Not Available [facility] 06/17/2025 09:53:47 Influenza, high-dose, trivalent, PF 7 completed Not Available [facility] 06/17/2025 09:53:47 zoster recombinant 8 completed Not Available [facility] 06/17/2025 09:53:47 Pneumococcal conjugate PCV 13 8 completed Not Available [facility] 06/17/2025 09:53:47 zoster recombinant 8 completed Not Available [facility] 06/17/2025 09:53:47 Influenza, high-dose, trivalent, PF 8 completed Not Available [facility] 06/17/2025 09:53:47 Influenza, adjuvanted, trivalent, PF 9 completed Not Available [facility] 06/17/2025 09:53:47 Influenza, high-dose, quadrivalent, PF 0 completed Not Available [facility] 06/17/2025 09:53:47 COVID-19, mRNA, LNP-S, PF, 30 mcg/0.3 mL dose 1 completed Not Available [facility] 06/17/2025 09:53:47 COVID-19, mRNA, LNP-S, PF, 30 mcg/0.3 mL dose 1 completed Not Available [facility] 06/17/2025 09:53:47 Influenza, high-dose, quadrivalent, PF 1 completed Not Available [facility] 06/17/2025 09:53:47 COVID-19, mRNA, LNP-S, PF, 30 mcg/0.3 mL dose 1 completed Not Available [facility] 06/17/2025 09:53:47 COVID-19, mRNA, LNP-S, PF, 30 mcg/0.3 mL dose, zhanna-sucrose 2 completed Not Available [facility] 06/17/2025 09:53:47 COVID-19, mRNA, LNP-S, bivalent, PF, 30 mcg/0.3 mL dose 2 completed Not Available [facility] 06/17/2025 09:53:47 Influenza, high-dose, quadrivalent, PF 2 completed Not Available [facility] 06/17/2025 09:53:47 COVID-19, mRNA, LNP-S, PF, 50 mcg/0.5 mL 3 completed Not Available [facility] 06/17/2025 09:53:47 Influenza, adjuvanted, quadrivalent, PF 3 completed Not Available [facility] 06/17/2025 09:53:47 COVID-19, mRNA, LNP-S, PF, 50 mcg/0.5 mL 4 completed Not Available [facility] 06/17/2025 09:53:47 COVID-19, mRNA, LNP-S, PF, 50 mcg/0.5 mL 4 completed Not Available [facility] 06/17/2025 09:53:47 Influenza, adjuvanted, trivalent, PF 4 completed Not Available [facility] 06/17/2025 09:53:47 COVID-19, mRNA, LNP-S, PF, 50 mcg/0.5 mL 5 completed Not Available [facility] 06/17/2025 09:53:47 SARS-COV-2 (COVID-19) vaccine, UNSPECIFIED 5 [...] 10 mcg/0.2 mL 5 completed Not Available [facility] 06/17/2025 09:53:47 Influenza, high-dose, trivalent, PF completed Not Available [facility] 06/17/2025 09:53:47 Past Encounters Encounter ID Performer Location Encounter Start Date Encounter Closed Date Diagnosis/Indication Diagnosis SNOMED-CT Code Diagnosis ICD10 Code Diagnosis IMO Codes Diagnosis Note [id number] Dilan Moreno MD [facility] [address] [address] 05/21/2025 15:21:42 05/25/2025 14:50:48 Malignant neoplasm of prostate [id number] C61 [id number] Health Concerns Section Related Observation LastModified by Organization Detai ls LastModified Time None Recorded Concern Status LastModified by Organization Details LastModified Time None Recorded Payers Encounter Date Sequence Insurance Name Policy Number Policy Jacinto Covered Member ID Jacinto Member ID Guarantor Name 05/21/2025 1 [place]ICARE [place]: [employer] Giovanny Olivares [id number] Giovanny Olivares
--- NOTE | 2025-06-17 15:07 | ED_ITS ---
HPI - General Adult General Chief complaint: Urogenital Problems, Male Stated complaint: Issues post catheter removal Time Seen by Provider: 06/17/25 14:27 History of Present Illness HPI narrative: 89-year-old male who had a history of longstanding indwelling co Echevarria catheter had removed by Urology today. Since then he has had some hesitancy to urinate, dribbling urination, little bit of blood mixed in his urine. He does not feel like he can urinate normally. His and here in agreement that he needs this placed again. He has had no fever, chills, vomiting, chest pain or breathing problem. Related Data Home Medications ?Medication ?Instructions ?Recorded ?Confirmed levothyroxine 88 mcg tablet 88 mcg PO QAM 11/20/2401/04 Allergies Allergy/AdvReac Type Severity Reaction Status Date / Time adhesive Allergy Unknown Verified 06/17/25 14:34 ketoconazole Allergy Unknown Verified 06/17/25 14:34 latex Allergy Unknown Verified 06/17/25 14:34 Penicillins Allergy Unknown Verified 06/17/25 14:34 povidone-iodine (From Allergy Unknown Verified 06/17/25 14:34 Betadine) Sulfa (Sulfonamide Allergy Unknown Verified 06/17/25 14:34 Antibiotics) Review of Systems Status of ROS: Reports: 6 or more systems reviewed and unremarkable except as noted in History and below [facility] Social History Smoking Status: Never smoker How often do you have a drink containing alcohol: never AUDIT-C Alcohol total score: 0 Non-prescribed substance use: denies use service: No Exam Narrative: Exam Narrative: Objective vital signs show slightly elevated systolic pressure, afebrile Alert orient x3 no distress Abdomen soft nontender External shows no bleeding or erythema. Const: Vital Signs, click to edit/add: Vital Signs - 24 hr 06/17/25 14:30 Temperature 97.9 F Pulse Rate [Right Pulse Oximeter] 99 Respiratory Rate 18 Blood Pressure [Ri ght Upper Arm] 194/101 H Pulse Oximetry 98 Oxygen Delivery Me thod Room Air Course Vital Signs Vital signs: Initial Vital Signs Temperature 97.9 F 06/17/25 14:30 Temperature Source Temporal Artery Scan 06/17/25 14:30 Pulse Rate 99 06/17/25 14:30 Pulse Rhythm Regular 06/17/25 14:30 Pulse Strength 3+ Normal 06/17/25 14:30 Respiratory Rate 18 06/17/25 14:30 Blood Pressure 194/101 H 06/17/25 14:30 Blood Pressure Mean 132 H 06/17/25 14:30 Blood Pressure Position Sitting 06/17/25 14:30 Pulse Oximetry 98 06/17/25 14:30 Oxygen Delivery Method Room Air 06/17/25 14:30 Vital Signs Temperature 97.9 F 06/17/25 14:30 Pulse Rate 99 06/17/25 14:30 Respiratory Rate 18 06/17/25 14:30 Blood Pressure 194/101 H 06/17/25 14:30 Pulse Oximetry 98 06/17/25 14:30 Oxygen Delivery Method Room Air 06/17/25 14:30 Temperature 97.9 F 06/17/25 14:30 Pulse Rate 99 06/17/25 14:30 Respiratory Rate 18 06/17/25 14:30 Blood Pressure 194/101 H 06/17/25 14:30 Pulse Oximetry 98 06/17/25 14:30 Oxygen Delivery Method Room Air 06/17/25 14:[address] [facility] Narrative Medical decision making narrative: [age] year white male with inability urinate with urinary retention. I think at this point would be appropriate distal put the Echevarria back in leave it in attached to leg bag, will have him follow-up with urology in the next week to 2 weeks. 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 He has had no infection symptoms, no burning with urination. At this point would simply place a catheter and along go home light activity, diet and fluids as per normal. Follow-up with primary care in the next 2-3 days, Urology in a couple of weeks as mention. Return to [facility] if problems. Discharge Plan Discharge Clinical Impression: Acute urinary retention Patient Disposition: Home w/ Parent or Adult Condition: Improved Additional Instructions: Light activity, diet and medications as per normal. Recommend recheck with your regular doctor next 2-3 days, follow-up with urologist in the next 2 weeks. Activity Level: Light activity Discharge Diet: Regular Prescriptions: No Action levothyroxine 88 mcg tablet 88 mcg PO QAM Follow Up/Referrals: Peggy Gregg MD [Primary Care Provider, Family Practice] Stand Alone Forms: MyHealth Info Instructions
[2025-06-17] MEDS: lidocaine HCL 2 % JELLY (TOP) STERILE 6 ML TOPICAL (15:45)
== END 2025-06-17 16:08 | disposition home or self-care (01) ==
PROVIDERS: Emergency Provider Family Medicine; PCP Family Medicine
DX: R33.9 Retention of urine, unspecified (principal)
CPT/HCPCS: 51702; 99282; 99284